=== PATIENT | male | born 1950 | race Two or more races ===

== ENCOUNTER → 2024-03-21 | Outpatient (CLI) | payer MEDICARE, BC, SELFPAY ==
[2024-03-20 16:01] VITALS: BMI 24.0
[2024-03-21 08:59] LABS: Partial Thromboplastin Time 26.1 Seconds (22.0-36.0); Prothrombin Time 11.3 Seconds (9.0-12.2)
== END | disposition home or self-care (01) ==
LOC: SLAB 03-23 07:40
PROVIDERS: Radiology Diagnostic Radiology; PCP Internal Medicine; Referring Provider Internal Medicine; Visit Provider Internal Medicine
DX: N18.6 End stage renal disease (principal); N17.0 Acute kidney failure with tubular necrosis
CPT/HCPCS: 36415; 85025; 85610; 85730

== ENCOUNTER 2024-04-02 15:19 | Emergency (ER) | payer MEDICARE, BC, SELFPAY ==
--- NOTE | 2024-04-02 15:33 | PD.EDRME ---
Rapid Medical Screening Exam RME Arrival date/time: 04/02/24 15:19 74-year-old male presents emerged part today patient had outpatient ultrasound today which showed the patient had a DVT in the right upper extremity patient was sent here for further evaluation Chief Complaint: Extremity Problem,Nontraumatic
[2024-04-02 15:38] VITALS: BP 191/81; PULSE 78; RESP 18; TEMP 36.9; O2SAT 97; BMI 22.3
[2024-04-02 15:55] LABS: Basophils % (Auto) 0 % (0-2.5); Eosinophils # (Auto) 0.1 Thou/mm3 (0.0-0.5); Eosinophils % (Auto) 1 % (0-10); Hematocrit 30.4 % (41.0-53.0); Hemoglobin 9.9 g/dL (13.5-16.0); Immature Granulocytes % (Auto) 1 % (0-0); Immature Granulocytes Auto 0.06 Thou/mm3 (0.00-0.00); Lymphocytes # (Auto) 1.7 Thou/mm3 (1.0-4.8); Lymphocytes % (Auto) 20 % (10-50); Mean Corpuscular HGB Conc 32.6 g/dl (31.0-37.0); Mean Corpuscular Volume 92 fL (80-100); Monocytes # (Auto) 0.6 Thou/mm3 (0.0-0.8); Monocytes % (Auto) 7 % (0-12); Neutrophils # (Auto) 6.1 Thou/mm3 (1.8-7.7); Neutrophils % (Auto) 71 % (37-80); Nucleated Red Blood Cell % 0 /100 WBC (0); Platelet Count 314 Thou/mm3 (140-440); RDW Standard Deviation 48.7 fL (35.1-43.9); White Blood Count 8.5 Thou/mm3 (3.8-10.6)
[2024-04-02 16:28] LABS: Partial Thromboplastin Time 28.5 Seconds (22.0-36.0); Prothrombin Time 11.4 Seconds (9.0-12.2)
[2024-04-02 16:30] LABS: Albumin, Serum 4.5 gm/dL (3.4-4.8); Albumin/Globulin Ratio 1.3 (1.2-2.2); Alkaline Phosphatase 100 U/L (46-116); Anion Gap 11 (7-16); Aspartate Amino Transferase 19 U/L (0-34); BUN/Creatinine Ratio 8 Ratio (12-20); Bilirubin,Total < 0.2 mg/dL (0.3-1.2); Blood Urea Nitrogen 33 mg/dL (9-23); Calcium 9.5 mg/dL (8.3-10.6); Calcium (Corrected) 9.5 mg/dL (8.5-10.1); Carbon Dioxide 28.2 mMol/L (20.0-31.0); Chloride 98 mMol/L (98-107); Creatinine (Component) 4.2 mg/dL (0.6-1.3); Estimated Creatinine Clearance 12.5 mL/min (>60); Globulin 3.6 gm/dL (2.3-3.5); Glucose 181 mg/dL (74-106); Osmolality,Calculated 286 (275-295); Potassium 3.8 mMol/L (3.4-5.1); Sodium 137 mMol/L (136-145); Total Protein 8.1 gm/dL (5.7-8.2); eGFR 14 See Note
[2024-04-02 16:31] LABS: Alanine Aminotransferase < 7 U/L (10-49)
[2024-04-02 21:36] VITALS: BP 153/68; PULSE 81; RESP 18; TEMP 36.8; O2SAT 97
--- NOTE | 2024-04-02 21:48 | PD.EDADULT ---
ED General RME/HPI General Chief complaint: Extremity Problem,Nontraumatic Stated complaint: RIGHT ARM SWELLING AFTER VASCATH PUT IN Time Seen by Provider: 04/02/24 21:41 Arrival date/time: 04/02/24 15:19 Mental swelling in the right arm HPI onset approximately 4 to 5 days ago patient was seen by Dr. Sparks referred to the hospital. The patient had newly placed dialysis shunt in the right anterior chest on March 22, after which the swelling in the arm appeared. There is a concern for a clot in the arm. Patient denies fever chills chest pain shortness of breath difficulty breathing. The patient's dialysis was moved from Tuesday to Tuesday of this week for purposes around [place]. Patient is awake alert and with no specific complaints. RME / HPI RME / HPI narrative: 04/02/24 15:19 74-year-old male presents emerged part today patient had outpatient ultrasound today which showed the patient had a DVT in the right upper extremity patient was sent here for further evaluation Related Data Home Medications ?Medication ?Instructions ?Recorded ?Confirmed memantine 5 mg tablet 5 mg PO BID 01/28/22 09/07/23 B-complex with vitamin C 1 tab PO QDAY 09/07/23 09/07/23 clonazepam 1 mg tablet 1 mg PO HS 09/07/23 09/07/23 clonidine HCl 0.1 mg tablet 0.1 mg PO PRN PRN blood pressure 09/07/23 09/07/23 divalproex 250 mg tablet,delayed 250 mg PO BID 09/07/23 09/07/23 release doxazosin 1 mg tablet 1 mg PO BID 09/07/23 09/07/23 mirtazapine 30 mg tablet 30 mg PO HS 09/07/23 09/07/23 nifedipine 30 mg tablet,extended 60 mg PO BID 09/07/23 09/07/23 release Previous Rx's ?Medication ?Instructions ?Recorded atorvastatin 10 mg tablet (Lipitor) 10 mg PO QPM #30 tabs 09/12/23 apixaban 2.5 mg tablet (Eliquis) 2.5 mg PO BID #30 tabs 04/02/24 Allergies Allergy/AdvReac Type Severity Reaction Status Date / Time No Known Allergies Allergy Verified 04/02/24 15:21 Review of Systems Review of Systems Narrative Review of Systems: GEN: No fever, no chills, no weight loss EYES: No discharge, no visual changes, no pain HEENT: No ear pain, no congestion, no sore throat PULM: No shortness of breath, no cough, no congestion CV: No chest pain, no dyspnea on exertion, no palpitations GI: No nausea, no vomiting, no diarrhea, no pain, no constipation : No frequency, no urgency, no dysuria MUSC/SKEL: No joint pain, no back pain SKIN: No rash PSYCH: No hallucinations, no depression HEME/LYMPH: No easy bleeding or bruising tendencies NEURO: No weakness, no headache Past Medical History Past Medical History NEUROLOGIC: Positive Neurological Disorders, Cerebrovascular Accident, Transient Ischemic Attacks (TIA), Dementia, Peripheral Neuropathy, Subdural Hematoma, Head Trauma and Traumatic Brain Injury; Negative Alzheimer's Disease, Parkinson's Disease, Brain Tumor, Meningitis, Seizures, Epilepsy, Multiple Sclerosis, Cerebral Palsy, Amyotrophic Lateral Sclerosis (ALS/Angela Gehrig's), Guillain-[place] Syndrome, Spina Bifida, Paralysis, Chamorro's Palsy, Migraine or Spinal Cord Injury CARDIAC: Positive Cardiac Disorders, Cardiac Arrhythmia, Atrial Fibrillation, Hypercholesterolemia, Edema and Hypertension; Negative Myocardial Infarction, Angina, Heart Murmur, Coronary Artery Disease, Atherosclerotic Heart Disease, Peripheral Vascular Disease, Aneurysm, Congestive Heart Failure, Congenital Heart Disease, Valvular Heart Disease, Rheumatic Fever, Cardiomyopathy, Pericarditis, Cellulitis, Deep Vein Thrombosis, Hypotension or Varicose Veins RESPIRATORY: Positive Pneumonia; Negative Chronic Obstructive Pulmonary Disease (COPD), Asthma, Bronchitis, Emphysema, Pulmonary Fibrosis, Cystic Fibrosis, Tuberculosis, Pulmonary Embolism, Pulmonary Edema or Sleep Apnea GASTROINTESTINAL: Negative Gastrointestinal Disorders, Hepatitis, Cirrhosis, Pancreatitis, Celiac Disease, Gall Bladder Disease, Gastrointestinal Bleed, Esophageal Varices, Liu's Esophagus, Colitis, Ulcerative Colitis, Diverticulitis, Diverticulosis, Ulcer, Colorectal Cancer, Irritable Bowel, Crohn's Disease, Obstructive Bowel, Hiatal Hernia, Hemorrhoids, Gastroesophageal Reflux Disease or Obesity GENITOURINARY: Positive Genitourinary Disorders, Renal Disease and Dialysis; Negative Kidney Stones, Polycystic Kidney Disease, Neurogenic Bladder, Inguinal Hernia, Prostate Cancer or Benign Prostatic Hyperplasia REPRODUCTIVE: Negative Breast Cancer, Genital Herpes, Gonorrhea, Syphilis or Testicular Cancer MUSCULOSKELETAL: Positive Osteomyelitis; Negative Musculoskeletal Disorders, Muscular Dystrophy, Myasthenia Gravis, Marfan's Syndrome, Bone Cancer, Arthritis, Rheumatoid Arthritis, Osteoporosis, Degenerative Disk Disease, Gout, Scoliosis, Carpal Tunnel Syndrome, Fibromyalgia, Fractures, Degenerative Joint Disease or Poliovirus ENT: Positive Cataracts and Head Trauma; Negative Glaucoma, Blind, Retinal Detachment, Macular Degeneration, Ear Infection, Deafness or Eye Prosthesis ENDOCRINE: Positive Endocrine Disorders and Diabetes Mellitus Type 2; Negative Diabetes Mellitus Type 1, Hypoglycemia, Trenton's Syndrome, Hazen's Disease, Hyperthyroidism, Hypothyroidism, Parathyroid Disease, Pituitary Disease, Systemic Lupus Erythematosus, Syndrome of Inappropriate Antidiuretic Hormone (SIADH), Adrenal Disease or Graves' Disease HEMATOLOGIC: Positive Blood Disorders and Anemia; Negative Leukemia, Hemophilia, Thalassemia, Sickle Cell Disease or Clotting Problems PSYCHO/SOCIAL: Positive Depression and Anxiety; Negative Psychiatric Problems, Schizophrenia, Recreational Drug Use, Bipolar Disorder, Behavior Problems, Self-Mutilation, Attention Deficit Disorder, Attention Deficit Hyperactivity Disorder, Post Traumatic Stress Disorder or Eating Disorder OTHER HISTORY: Positive Hospitalization, Falls and Blood Transfusions; Negative Autoimmune Disease, Down Syndrome, Autism, Developmental Delay, Shingles, Blood Transfusion Reaction, Anesthesia Reactions, Organ Transplant, Chemotherapy, Radiation Therapy, Hyperbaric Therapy, MRSA, VRSA, Vancomycin-Resistant Enterococci, Human Immunodeficiency Virus (HIV), Chicken Pox, Measles, Mumps, Rubella ([place] Measles), Pertussis, Clostridium Difficile, Cancer, Breast Cancer, Cervical Cancer, Colorectal Cancer, Lung Cancer, Ovarian Cancer, Prostate Cancer or Testicular Cancer Family History FAMILY HISTORY: Positive Family Cardiac Disorders; Negative Family Psychiatric Problems, Family Respiratory Disorders, Family Gastrointestinal Problems, Family Cancer, Family Surgery or Family Anesthesia Reaction Surgical History SURGICAL: Positive Eye Surgery, Oral Surgery, Tonsillectomy, Adenoidectomy, Throat Surgery, Tracheostomy, Gastrostomy and Amputation; Negative Cardiac Surgery, Open Heart Surgery, Coronary Artery Bypass Graft, Valve Replacement, Vascular Surgery, Coronary Stent, Cardiac Catheterization, Pacemaker, Angiogram, Auto Implanted Cardiovert Defib, Carotid Endarterectomy, Endocrine Surgery, Thyroidectomy, Ear Surgery, Tympanostomy Tube, Nose Surgery, Cochlear Implant, Corneal Transplant, Abdominal Surgery, Gastric Bypass Surgery, Bowel Surgery, Nephrectomy, Transurethral Resection, Joint Replacement, Open Reduction Internal Fixation, Arthroscopy, Neurologic Surgery, Brain Shunt, Vasectomy or Organ Transplant Social History SMOKING STATUS: Never smoker SECOND HAND EXPOSURE: No SUBSTANCE USE: does not use ED Exam Narrative Physical exam: [General: Appears not in any acute distress acute distress Head normocephalic HEENT: Eyes pupils are PERRLA although subsystems of HEENT are within acceptable limits Neck is supple nontender Chest equal chest rise nontender to palpation, right anterior chest dialysis shunt cath clean dry and intact with dry dressing. No surrounding erythema or edema. Respiratory: Clear to auscultation no wheezes crackles or rubs CV: Rate rhythm is regular no murmurs rubs or clicks Abdomen is distended secondary to body habitus soft nontender no masses positive bowel sounds all 4 quadrants Back: No CVA tenderness no spinous process tenderness from cervical spine thoracic and lumbar spine Skin: Mild edema to the right upper arm and in the axillary. No surrounding erythema or edema. Intact no petechiae rash induration ulceration or crepitus Extremities: Moving all extremity against resistance cap refill less than 2 seconds neurosensory intact Neuro: Awake alert oriented x3 Glascow coma 15 no focal deficits] Course Quality Measures none Orders Category Date Time Status CBC Stat Lab 04/02/24 15:45 Completed Comprehensive Metabolic Panel Stat Lab 04/02/24 15:45 Completed Partial Thromboplastin Time Stat Lab 04/02/24 15:45 Completed Prothrombin Time with INR Stat Lab 04/02/24 15:45 Completed Apixaban [Eliquis] Med 04/02/24 22:20 Discontinued 2.5 mg PO X1 ONE Vital Signs Vital signs: Vital Signs Temperature 98.5 F 04/02/24 15:38 Pulse Rate 78 04/02/24 15:38 Respiratory Rate 18 04/02/24 15:38 Blood Pressure 191/81 H 04/02/24 15:38 Pulse Oximetry (%) 97 04/02/24 15:38 Oxygen Delivery Method Room Air 04/02/24 15:38 [facility] Patient data External records reviewed:: [facility] previous records Clinical information provided by:: patient and family Social determinants that could affect healthcare access:: mental health Patient has the following chronic illnesses:: ESRD dialysis Tuesday and Tuesday normally however this week is Tuesday and secondary to [place] accommodations. Recent right anterior chest dialysis shunt placement on March 22. 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 Patient's son who is power of senior lead software engineer and medical power of senior lead software engineer states he wants to start on the Eliquis after risks and benefit were discussed both of and potential head bleed secondary to the old hemorrhage a year ago and bleeding placed on thinners and from avoiding thinners secondary to the clot in the upper arm which may cause stroke and/or pulmonary emboli. After lengthy discussion regarding the risks of either the son elected to go to start the Eliquis. Patient's case and the son's decision discussed with Dr. Sparks who agrees to a low-dose giving the first dose tonight, and a prescription for follow-up. Son was informed that the patient's decrease in altered mental status in the next couple of days may be as a result of a head bleed and if there is any questions return the emergency room for reevaluation. How is presenting disease/condition affected by chronic disease/condition?: exacerbated by Evaluation data The following diagnostics were reviewed and interpreted by me:: lab results and radiology exam(s) Lab and/or radiology exams considered but not ordered:: CBC shows no leukocytosis stable anemia no thrombocytopenia Coags within acceptable limits CMP shows sodium 137 potassium 3.8 chloride of 98 CO2 of 28.2 BUN of 33 creatinine 4.2 glucose of 181 Interpretation Summary: DVT in the right upper extremity son who has power of medical privileges over the patient once the patient started on Eliquis we will give him his first dose here. Medications Medications considered but not ordered:: None Medication administrations:: Medication Administration History Discontinued Medications Apixaban (Apixaban 2.5 Mg Tablet) 2.5 mg PO X1 ONE Stop: 04/02/24 22:21 None Consultations Consultation(s) initiated? (list below): No Diagnosis Differential Diagnosis ED Complaint MDM: Upper extremity DVT, clotted shunt, anemia Most likely diagnosis given after review of the tests above:: Upper extremity DVT Admission Indicated Admission indicated?: not indicated Explain why admission is indicated or not indicated:: Stable for outpatient follow-up Admission Request Was there a request for admission?: No Disposition Plan Disposition Plan: Discharge Discharge Attestation Discharge Attestation: The patient and all family members were given an opportunity to ask questions and understood the discharge instructions. Discharge instructions specifically effects, indications for sooner follow up or return to the emergency department, and the expected course of current diagnosis. Patient condition: Stable Medical Decision Making Differential Diagnosis Differential Diagnosis: Upper extremity DVT, clotted shunt, anemia Lab Data 04/02/24 15:45 04/02/24 15:45 Labs: Lab Results 04/02/24 Range/Units 15:45 WBC 8.5 (3.8-10.6) Thou/mm3 RBC 3.30 L (4.50-5.90) Miln/mm3 Hgb 9.9 L (13.5-16.0) g/dL Hct 30.4 L (41.0-53.0) % MCV 92 (80-100) fL MCH 30.0 (25.0-35.0) pg MCHC 32.6 (31.0-37.0) g/dl RDW Std Deviation 48.7 H (35.1-43.9) fL Plt Count 314 (140-440) Thou/mm3 Neut % (Auto) 71 (37-80) % Lymph % (Auto) 20 (10-50) % [place] % (Auto) 7 (0-12) % Eos % (Auto) 1 (0-10) % Baso % (Auto) 0 (0-2.5) % Neut # (Auto) 6.1 (1.8-7.7) Thou/mm3 Lymph # (Auto) 1.7 (1.0-4.8) Thou/mm3 [place] # (Auto) 0.6 (0.0-0.8) Thou/mm3 Eos # (Auto) 0.1 (0.0-0.5) Thou/mm3 Baso # (Auto) 0.0 (0.0-0.2) Thou/mm3 Immature Gran # (Auto) 0.06 H (0.00-0.00) Thou/mm3 Absolute Nucleated RBC 0.00 (0.00-0.00) Thou/mm3 Immature Gran % 1 H (0-0) % Nucleated RBC % 0 (0) /100 WBC PT 11.4 (9.0-12.2) Seconds INR 1.0 (0.9-1.3) APTT 28.5 (22.0-36.0) Seconds Sodium 137 (136-145) mMol/L Potassium 3.8 (3.4-5.1) mMol/L Chloride 98 (98-107) mMol/L Carbon Dioxide 28.2 (20.0-31.0) mMol/L Anion Gap 11 (7-16) BUN 33 H (9-23) mg/dL Creatinine 4.2 H* (0.6-1.3) mg/dL Estim Creat Clear Calc 12.5 L (>60) mL/min eGFR 14 L* (60 - ) See Note BUN/Creatinine Ratio 8 L (12-20) Ratio Glucose 181 H (74-106) mg/dL Calculated Osmolality 286 (275-295) Calcium 9.5 (8.3-10.6) mg/dL Corrected Calcium 9.5 (8.5-10.1) mg/dL Total Bilirubin < 0.2 L (0.3-1.2) mg/dL AST 19 (0-34) U/L ALT < 7 L (10-49) U/L Alkaline Phosphatase 100 (46-116) U/L Total Protein 8.1 (5.7-8.2) gm/dL Albumin 4.5 (3.4-4.8) gm/dL Globulin 3.6 H (2.3-3.5) gm/dL Albumin/Globulin Ratio 1.3 (1.2-2.2) Discharge Plan Plan Patient Disposition: HOME (Self Care) Patient condition on transfer: Stable Prescriptions/Referrals Prescriptions/Med Rec: New Eliquis 2.5 mg tablet 2.5 mg PO BID Qty: 30 1RF No Action clonidine HCl 0.1 mg tablet 0.1 mg PO PRN PRN (Reason: blood pressure) Patient Comments: take 1 tablet by mouth four times a day Rx Instructions: systolic above 175 divalproex 250 mg tablet,delayed release (DR/EC) 250 mg PO BID Patient Comments: TAKE ONE TABLET (250MG) BY MOUTH TWICE DAILY FOR AGITATION DO NOT CHEW OR CRUSH SWALLOW WHOLE doxazosin 1 mg tablet 1 mg PO BID Patient Comments: TAKE ONE TABLET (1MG) BY MOUTH TWICE DAILY FOR HIGH BLOOD PRESSURE clonazepam 1 mg tablet 1 mg PO HS Patient Comments: TAKE ONE TABLET BY MOUTH THREE TIMES DAILY NEEDED FOR ANXIETY nifedipine 30 mg tablet extended release 60 mg PO BID Patient Comments: take 2 tablets by mouth twice a day mirtazapine 30 mg tablet 30 mg PO HS B-complex with vitamin C Tablet 1 tab PO QDAY atorvastatin [Lipitor] 10 mg Tablet 10 mg PO QPM Qty: 30 0RF memantine 5 mg Tablet 5 mg PO BID Referrals: Neda Sparks MD [Primary Care Provider] - In 1 week Problem List Clinical Impression: Acute deep vein thrombosis (DVT) of right upper extremity Patient/Caregiver Discharge Instructions Education Materials: DVT Complications, DVT Dc Additional Instructions: As you are aware given the blood thinners with a history of a head bleed 1 year ago has significant risks for repeat bleed in the head. If the patient has a rapid deteriorating neurologic function becoming nonresponsive please return to the emergency room immediately for further evaluation and stop giving the Eliquis. Follow-up with Dr. Sparks closely. Print Language: Dustin Stand Alone Forms: [place] Award Info., Patient Portal Info Letter, Work/School Release PA/OIL FIELD WORKER Supervising Physician PA/OIL FIELD WORKER Supervising Physician: Cy Winter ENP
[2024-04-02] MEDS: APIXABAN 2.5 MG TABLET PO (22:33)
== END 2024-04-02 22:35 | disposition home or self-care (01) ==
PROVIDERS: Nurse Practitioner Primary Care; Emergency Provider Emergency Medicine; PCP Internal Medicine
DX: I82.621 Acute embolism and thrombosis of deep veins of right upper extremity (principal)
CPT/HCPCS: 36415; 80053; 85025; 85610; 85730; 99283; A9270

== ENCOUNTER → 2024-04-02 | Outpatient (CLI) | payer MEDICARE, BC, SELFPAY ==
--- NOTE | 2024-04-02 14:33 | XR_ITS ---
Examination: Duplex scan of the upper extremity, unilateral right complete Date and time of exam: April 02, 2024 1448 hrs. Indications: Right arm swelling post catheter replacement March 22, 2024 Technique: Duplex scan of the extremity veins using B-mode/grayscale imaging and Doppler spectral analysis and color flow Attention is directed to internal echogenicity, compression and augmentation involving these veins, color flow assessment, spectral analysis Findings: Positive for occlusive thrombus jugular vein subclavian and axillary vein Cephalic brachial basilic radial and ulnar veins are open Impression: Positive for occlusive thrombus remains subclavian axillary veins
== END | disposition home or self-care (01) ==
PROVIDERS: PCP Internal Medicine; Referring Provider Internal Medicine; Visit Provider Internal Medicine
DX: I82.601 Acute embolism and thrombosis of unspecified veins of right upper extremity (principal)
CPT/HCPCS: 93971

== ENCOUNTER 2024-04-24 20:32 | Emergency (ER) | payer MEDICARE, BC, SELFPAY ==
[2024-04-24 20:41] VITALS: BP 169/72; PULSE 77; RESP 17; TEMP 36.9; O2SAT 96
[2024-04-24 21:28] VITALS: PULSE 80; RESP 16; O2SAT 97; BMI 23.5
[2024-04-24 22:24] VITALS: BP 162/114; PULSE 108; RESP 26; O2SAT 96
[2024-04-24 23:00] VITALS: BP 150/71; PULSE 76; RESP 22; O2SAT 98
--- NOTE | 2024-04-24 23:19 | EDNOTE_ITS ---
Altered Mental Status RME/HPI General Chief Complaint: Altered Mental Status Stated Complaint: CONFUSION Time Seen by Provider: 04/24/24 23:21 Arrival date/time: 04/24/24 20:32 RME / HPI RME / HPI narrative: Dr. High's Main ED Evaluation: 74yo male with pmhx dementia, CVA, ESRD on HD (M/W/F), DM, HTN, HLD BIBA from home presents to the ED for a chief complaint of AMS. Patient's son states the patient has been more confused and altered for the last 2 days, reporting tonight he was pulling at his dialysis port. Son states they were concerned due to the patient being due for dialysis tomorrow, so they had him brought in for evaluation. Full ROS is unobtainable due to the patient's AMS. Of note, son states the patient is no longer on Eliquis, and was stopped by his hospice doctor and son states that this is the best choice because he is high risk for falling and they would do not want that. He realizes that patient can also have a pulmonary embolism since he is not on Eliquis. Related Data Home Medications ?Medication ?Instructions ?Recorded ?Confirmed memantine 5 mg tablet 5 mg PO BID 01/28/22 09/07/23 B-complex with vitamin C 1 tab PO QDAY 09/07/23 09/07/23 clonazepam 1 mg tablet 1 mg PO HS 09/07/23 09/07/23 clonidine HCl 0.1 mg tablet 0.1 mg PO PRN PRN blood pressure 09/07/23 09/07/23 divalproex 250 mg tablet,delayed 250 mg PO BID 09/07/23 09/07/23 release doxazosin 1 mg tablet 1 mg PO BID 09/07/23 09/07/23 mirtazapine 30 mg tablet 30 mg PO HS 09/07/23 09/07/23 nifedipine 30 mg tablet,extended 60 mg PO BID 09/07/23 09/07/23 release Previous Rx's ?Medication ?Instructions ?Recorded atorvastatin 10 mg tablet (Lipitor) 10 mg PO QPM #30 tabs 09/12/23 apixaban 2.5 mg tablet (Eliquis) 2.5 mg PO BID #30 tabs 04/02/24 Allergies Allergy/AdvReac Type Severity Reaction Status Date / Time No Known Allergies Allergy Verified 04/02/24 15:21 Review of Systems Review of Systems ROS Unobtainable: unobtainable due to mental status Past Medical History Past Medical History NEUROLOGIC: Positive Neurological Disorders, Cerebrovascular Accident, Transient Ischemic Attacks (TIA), Dementia, Peripheral Neuropathy, Subdural Hematoma, Head Trauma and Traumatic Brain Injury; Negative Alzheimer's Disease, Parkinson's Disease, Brain Tumor, Meningitis, Seizures, Epilepsy, Multiple Sclerosis, Cerebral Palsy, Amyotrophic Lateral Sclerosis (ALS/Angela Gehrig's), Guillain-Milford Syndrome, Spina Bifida, Paralysis, Chamorro's Palsy, Migraine or Spinal Cord Injury CARDIAC: Positive Cardiac Disorders, Cardiac Arrhythmia, Atrial Fibrillation, Hypercholesterolemia, Edema and Hypertension; Negative Myocardial Infarction, Angina, Heart Murmur, Coronary Artery Disease, Atherosclerotic Heart Disease, Peripheral Vascular Disease, Aneurysm, Congestive Heart Failure, Congenital Heart Disease, Valvular Heart Disease, Rheumatic Fever, Cardiomyopathy, Pericarditis, Cellulitis, Deep Vein Thrombosis, Hypotension or Varicose Veins RESPIRATORY: Positive Pneumonia; Negative Chronic Obstructive Pulmonary Disease (COPD), Asthma, Bronchitis, Emphysema, Pulmonary Fibrosis, Cystic Fibrosis, Tuberculosis, Pulmonary Embolism, Pulmonary Edema or Sleep Apnea GASTROINTESTINAL: Negative Gastrointestinal Disorders, Hepatitis, Cirrhosis, Pancreatitis, Celiac Disease, Gall Bladder Disease, Gastrointestinal Bleed, Esophageal Varices, Liu's Esophagus, Colitis, Ulcerative Colitis, Diverticulitis, Diverticulosis, Ulcer, Colorectal Cancer, Irritable Bowel, Crohn's Disease, Obstructive Bowel, Hiatal Hernia, Hemorrhoids, Gastroesophageal Reflux Disease or Obesity GENITOURINARY: Positive Genitourinary Disorders, Renal Disease and Dialysis; Negative Kidney Stones, Polycystic Kidney Disease, Neurogenic Bladder, Inguinal Hernia, Prostate Cancer or Benign Prostatic Hyperplasia REPRODUCTIVE: Negative Breast Cancer, Genital Herpes, Gonorrhea, Syphilis or Testicular Cancer MUSCULOSKELETAL: Positive Osteomyelitis; Negative Musculoskeletal Disorders, Muscular Dystrophy, Myasthenia Gravis, Marfan's Syndrome, Bone Cancer, Arthritis, Rheumatoid Arthritis, Osteoporosis, Degenerative Disk Disease, Gout, Scoliosis, Carpal Tunnel Syndrome, Fibro myalgia, Fractures, Degenerative Joint Disease or Poliovirus ENT: Positive Cataracts and Head Trauma; Negative Glaucoma, Blind, Retinal Detachment, Macular Degeneration, Ear Infection, Deafness or Eye Prosthesis ENDOCRINE: Positive Endocrine Disorders and Diabetes Mellitus Type 2; Negative Diabetes Mellitus Type 1, Hypoglycemia, Jacques's Syndrome, Sumit's Disease, Hyperthyroidism, Hypothyroidism, Parathyroid Disease, Pituitary Disease, Systemic Lupus Erythematosus, Syndrome of Inappropriate Antidiuretic Hormone (SIADH), Adrenal Disease or Graves' Disease HEMATOLOGIC: Positive Blood Disorders and Anemia; Negative Leukemia, Hemophilia, Thalassemia, Sickle Cell Disease or Clotting Problems PSYCHO/SOCIAL: Positive Depression and Anxiety; Negative Psychiatric Problems, Schizophrenia, Recreational Drug Use, Bipolar Disorder, Behavior Problems, Self-Mutilation, Attention Deficit Disorder, Attention Deficit Hyperactivity Disorder, Post Traumatic Stress Disorder or Eating Disorder OTHER HISTORY: Positive Hospitalization, Falls and Blood Transfusions; Negative Autoimmune Disease, Down Syndrome, Autism, Developmental Delay, Shingles, Blood Transfusion Reaction, Anesthesia Reactions, Organ Transplant, Chemotherapy, Radiation Therapy, Hyperbaric Therapy, MRSA, VRSA, Vancomycin- Resistant Enterococci, Human Immunodeficiency Virus (HIV), Chicken Pox, Measles, Mumps, Rubella (Uzbek Measles), Pertussis, Clostridium Difficile, Cancer, Breast Cancer, Cervical Cancer, Colorectal Cancer, Lung Cancer, Ovarian Cancer, Prostate Cancer or Testicular Cancer Family History FAMILY HISTORY: Positive Family Cardiac Disorders; Negative Family Psychiatric Problems, Family Respiratory Disorders, Family Gastrointestinal Problems, Family Cancer, Family Surgery or Family Anesthesia Reaction Surgical History SURGICAL: Positive Eye Surgery, Oral Surgery, Tonsillectomy, Adenoidectomy, Throat Surgery, Tracheostomy, Gastrostomy and Amputation; Negative Cardiac Surgery, Open Heart Surgery, Coronary Artery Bypass Graft, Valve Replacement, Vascular Surgery, Coronary Stent, Cardiac Catheterization, Pacemaker, Angiogram, Auto Implanted Cardiovert Defib, Carotid Endarterectomy, Endocrine Surgery, Thyroidectomy, Ear Surgery, Tympanostomy Tube, Nose Surgery, Cochlear Implant, Corneal Transplant, Abdominal Surgery, Gastric Bypass Surgery, Bowel Surgery, Nephrectomy, Transurethral Resection, Joint Replacement, Open Reduction Internal Fixation, Arthroscopy, Neurologic Surgery, Brain Shunt, Vasectomy or Organ Transplant Social History SMOKING STATUS: Never smoker SECOND HAND EXPOSURE: No SUBSTANCE USE: does not use ED Exam General General appearance: Present other (demented at baseline; recognizes his son, opens and closes his eyes spontaneously, refuses to talk) Head Head exam: Present atraumatic and normocephalic Eye Eye exam: Present normal appearance Neck Neck exam: Present normal inspection and full ROM Chest Chest inspection: Present normal inspection, symmetric chest wall rise and other (port-a-cath to the right chest with stitches in place, no blood on gauze) Respiratory Respiratory exam: Absent accessory muscle use Cardiovascular Cardiovascular exam: Present regular rate and normal rhythm Abdominal Exam Abdominal exam: Present soft and other (scaphoid) Extremities Exam Extremities exam: Present normal inspection and full ROM; Absent pedal edema Neurological Exam Neurological exam: Present other (demented at baseline) Psychiatric Psychiatric exam: Present agitated Skin Skin exam: Present warm, dry and intact Course Quality Measures none Orders Category Date Time Status CT head/brain wo con Stat Exams 04/24/24 23:22 Completed CBC Stat Lab 04/24/24 23:35 Completed CMP [Comprehensive Metabolic Panel] Stat Lab 04/24/24 23:35 Completed Vital Signs Vital signs: Vital Signs Temperature 98.5 F 04/24/24 20:41 Pulse Rate 77 04/24/24 20:41 Respiratory Rate 17 04/24/24 20:41 Blood Pressure 169/72 H 04/24/24 20:41 Pulse Oximetry (%) 96 04/24/24 20:41 Oxygen Delivery Method Room Air 04/24/24 20:41 Altered Mental Status MDM Narrative MDM Narrative:: 74-year-old male coming in with acute on chronic dementia. CT does not show bleed. Discussed with the son and at this time he feels very comfortable taking the patient home. He feels the patient is at his baseline. Patient data External records reviewed:: [facility] previous records (Per chart review, patient was seen here on 04/02/24 for acute DVT of the RUE.) Clinical information provided by:: family Social determinants that could affect healthcare access:: none Patient has the following chronic illnesses:: dementia, CVA, ESRD on HD (M/W/F), DM, HTN, HLD How is presenting disease/condition affected by chronic disease/condition?: exacerbated by Evaluation data The following diagnostics were reviewed and interpreted by me:: lab results and radiology exam(s) Lab and/or radiology exams considered but not ordered:: none Interpretation Summary: WBC count is normal, HnH is low at 8.5/25.3 (baseline for the patient), Creatinine is elevated at 4.8, according to my interpretation. --------- [facility] Report Signed Patient: KELLY HOU. Record#: [id number] Birthdate: 1950 Age/Sex: 74 / M Location: [facility] Attending Dr: Ordering Physician: Anabelle High MD Date of Service: 04/24/24 Procedure(s): CT head/brain wo con Accession Number(s): [id number] cc: Nishant Sellers MD; Anabelle High MD~ Examination: CT brain head without contrast. 2-D sagittal coronal reconstructions Date and time of exam:April 24, 1999 2539 hours Comparison September 07, 2023 Indications: Dementia history with increasing altered mental status the last 2 days CTDI: vol (mGy):50 DLP: (mGycm):1050 Technique: Multiple CT axial sections of the brain have been obtained, 5 mm slice thickness. Contrast has not been administered. 2-D sagittal, coronal reconstructions have been obtained Low dose protocols were performed. One or more of the following dose reduction techniques were used; automated exposure control, adjustment of the mA and/or KV according to patient size, use of iterative reconstruction technique. Findings: No significant ventricular enlargement. Frontal atrophy with extensive chronic microvascular white matter change Intra-axial or extra-axial hemorrhage density is not seen. No mass effect or midline shift Basal cisterns are not remarkable. Fourth ventricle is midline. Cranial vault intact. Impression: Negative for acute hemorrhage, mass effect or midline shift As clinically warranted, brain MRI follow-up would best assess for acute ischemic change as well as chronic multi-infarct dementia pattern Dictated By: Nishant Sellers MD Signed By: <Electronically signed by Nishant Sellers MD in OV> 04/24/24 8029 Medications / Prescriptions Medications or Prescriptions considered but not ordered:: none Medication administrations:: see above Consultations Consultation(s) initiated? (list below): No Diagnosis Differential diagnosis altered mental status: other (dehydration, UTI, electrolyte abnormality) Most likely diagnosis given after review of the tests above:: see below Admission Indicated Admission indicated?: not indicated Admission Request Was there a request for admission?: No Disposition Plan Disposition Plan: Discharge Discharge Attestation Discharge Attestation: The patient and all family members were given an opportunity to ask questions and understood the discharge instructions. Discharge instructions specifically effects, indications for sooner follow up or return to the emergency department, and the expected course of current diagnosis. Patient condition: Stable Discharge Plan Plan Patient Disposition: HOME (Self Care) Patient condition on transfer: Stable Prescriptions/Referrals Prescriptions/Med Rec: No Action clonidine HCl 0.1 mg tablet 0.1 mg PO PRN PRN (Reason: blood pressure) Patient Comments: take 1 tablet by mouth four times a day Rx Instructions: systolic above 175 divalproex 250 mg tablet,delayed release (DR/EC) 250 mg PO BID Patient Comments: TAKE ONE TABLET (250MG) BY MOUTH TWICE DAILY FOR AGITATION DO NOT CHEW OR CRUSH SWALLOW WHOLE doxazosin 1 mg tablet 1 mg PO BID Patient Comments: TAKE ONE TABLET (1MG) BY MOUTH TWICE DAILY FOR HIGH BLOOD PRESSURE clonazepam 1 mg tablet 1 mg PO HS Patient Comments: TAKE ONE TABLET BY MOUTH THREE TIMES DAILY NEEDED FOR ANXIETY nifedipine 30 mg tablet extended release 60 mg PO BID Patient Comments: take 2 tablets by mouth twice a day mirtazapine 30 mg tablet 30 mg PO HS B-complex with vitamin C Tablet 1 tab PO QDAY atorvastatin [Lipitor] 10 mg Tablet 10 mg PO QPM Qty: 30 0RF Eliquis 2.5 mg tablet 2.5 mg PO BID Qty: 30 1RF memantine 5 mg Tablet 5 mg PO BID Problem List Clinical Impression: Dementia Patient/Caregiver Discharge Instructions Education Materials: Dementia Caregiver Tips Additional Instructions: Please go to dialysis today as directed. Return to emergency department for any worsening symptoms, or any other concerns. Print Language: Dustin Stand Alone Forms: [facility]ne Award Info., Patient Portal Info Letter
--- NOTE | 2024-04-24 23:22 | XR_ITS ---
Examination: CT brain head without contrast. 2-D sagittal coronal reconstructions Date and time of exam:April 24, 1999 2539 hours Comparison September 07, 2023 Indications: Dementia history with increasing altered mental status the last 2 days CTDI: vol (mGy):50 DLP: (mGycm):1050 Technique: Multiple CT axial sections of the brain have been obtained, 5 mm slice thickness. Contrast has not been administered. 2-D sagittal, coronal reconstructions have been obtained Low dose protocols were performed. One or more of the following dose reduction techniques were used; automated exposure control, adjustment of the mA and/or KV according to patient size, use of iterative reconstruction technique. Findings: No significant ventricular enlargement. Frontal atrophy with extensive chronic microvascular white matter change Intra-axial or extra-axial hemorrhage density is not seen. No mass effect or midline shift Basal cisterns are not remarkable. Fourth ventricle is midline. Cranial vault intact. Impression: Negative for acute hemorrhage, mass effect or midline shift As clinically warranted, brain MRI follow-up would best assess for acute ischemic change as well as chronic multi-infarct dementia pattern
[2024-04-24 23:55] LABS: Eosinophils % (Auto) 2 % (0-10); Lymphocytes % (Auto) 20 % (10-50); Mean Corpuscular HGB Conc 33.6 g/dl (31.0-37.0)
[2024-04-25 00:06] LABS: Alanine Aminotransferase < 7 U/L (10-49); Albumin, Serum 3.8 gm/dL (3.4-4.8); Albumin/Globulin Ratio 1.2 (1.2-2.2); Alkaline Phosphatase 90 U/L (46-116); Anion Gap 10 (7-16); Aspartate Amino Transferase 20 U/L (0-34); BUN/Creatinine Ratio 8 Ratio (12-20); Bilirubin,Total < 0.2 mg/dL (0.3-1.2); Blood Urea Nitrogen 38 mg/dL (9-23); Calcium 8.8 mg/dL (8.3-10.6); Carbon Dioxide 28.2 mMol/L (20.0-31.0); Chloride 99 mMol/L (98-107); Creatinine (Component) 4.8 mg/dL (0.6-1.3); Estimated Creatinine Clearance 12.2 mL/min (>60); Globulin 3.2 gm/dL (2.3-3.5); Glucose 111 mg/dL (74-106); Osmolality,Calculated 283 (275-295); Potassium 3.6 mMol/L (3.4-5.1); Sodium 137 mMol/L (136-145); eGFR 12 See Note
[2024-04-25 00:39] VITALS: BP 180/92; PULSE 70; RESP 20; TEMP 37; O2SAT 98
[2024-04-25 01:55] LABS: Hemoglobin 8.5 g/dL (13.5-16.0)
[2024-04-25 02:00] LABS: White Blood Count 8.1 Thou/mm3 (3.8-10.6)
[2024-04-25 02:01] LABS: Hematocrit 25.3 % (41.0-53.0); Mean Corpuscular Hemoglobin 30.4 pg (25.0-35.0); Mean Corpuscular Volume 90 fL (80-100)
[2024-04-25 02:02] LABS: Platelet Count 268 Thou/mm3 (140-440); RDW Standard Deviation 47.7 fL (35.1-43.9)
[2024-04-25 02:03] LABS: Basophils % (Auto) 0 % (0-2.5); Monocytes % (Auto) 8 % (0-12); Neutrophils # (Auto) 5.6 Thou/mm3 (1.8-7.7); Neutrophils % (Auto) 69 % (37-80)
[2024-04-25 02:04] LABS: Eosinophils # (Auto) 0.1 Thou/mm3 (0.0-0.5); Immature Granulocytes % (Auto) 1 % (0-0); Lymphocytes # (Auto) 1.7 Thou/mm3 (1.0-4.8); Monocytes # (Auto) 0.7 Thou/mm3 (0.0-0.8)
[2024-04-25 02:05] LABS: Immature Granulocytes Auto 0.05 Thou/mm3 (0.00-0.00); Nucleated Red Blood Cell % 0 /100 WBC (0)
[2024-04-25 02:20] LABS: Eosinophils (Manual) 2 % (0-4); Lymphocytes (Manual) 26 % (20-44); Monocytes (Manual) 9 % (2-9); Neutrophils (Manual) 63 % (50-70)
[2024-04-25 04:22] VITALS: BP 166/76; PULSE 72; RESP 18; TEMP 36.8; O2SAT 98
== END 2024-04-25 04:26 | disposition home or self-care (01) ==
LOC: SERX 04-25 04:04
PROVIDERS: Emergency Provider Emergency Medicine; PCP Internal Medicine
DX: E11.22 Type 2 diabetes mellitus with diabetic chronic kidney disease (principal); I12.0 Hypertensive chronic kidney disease with stage 5 chronic kidney disease or end stage renal disease; N18.6 End stage renal disease; Z99.2 Dependence on renal dialysis; Z86.73 Personal history of transient ischemic attack (TIA), and cerebral infarction without residual deficits
CPT/HCPCS: 36415; 70450; 80053; 85025; 99284

== ENCOUNTER → 2024-06-13 | Outpatient (CLI) | payer MEDICARE, BC, SELFPAY ==
[2024-06-13 11:42] LABS: OBS Card Expiration Date 2026-09; OBS Card Lot # 23001; OBS Performed By LAB; OBS QC OK? Yes
[2024-06-13 13:28] LABS: OBS Developer Expiration Date 2026-09; OBS Developer Lot # 23003; Occult Blood, Stool Negative (Negative); Occult Blood, Stool #2 Negative (Negative); Occult Blood, Stool #3 Negative (Negative)
== END | disposition home or self-care (01) ==
LOC: SLDO 10:30
PROVIDERS: PCP Internal Medicine; Referring Provider Internal Medicine; Visit Provider Internal Medicine
DX: D64.9 Anemia, unspecified (principal)
CPT/HCPCS: 82270

== ENCOUNTER → 2024-09-17 | Outpatient (CLI) | payer MEDICARE, BC, SELFPAY ==
--- NOTE | 2024-09-17 15:48 | XR_ITS ---
Examination: Duplex scan of the upper extremity, unilateral right Date and time of exam: September 17, 2024 1615 hours INDICATIONS: Right arm swelling beginning March 2024, positive for occlusive DVT jugular vein on ultrasound examination April 02, 2024, Technique: Duplex scan of the extremity veins using B-mode/grayscale imaging and Doppler spectral analysis and color flow Attention is directed to internal echogenicity, compression and augmentation involving these veins, color flow assessment, spectral analysis Findings: Major deep venous structures in the extremity demonstrate normal course and caliber. There is no evidence of deep vein thrombosis. No diagnostic visualization subclavian vein Normal color flow and spectral analysis Impression: No DVT demonstrated, including patent jugular vein
== END | disposition home or self-care (01) ==
PROVIDERS: PCP Internal Medicine; Referring Provider Internal Medicine; Visit Provider Internal Medicine
DX: R22.33 Localized swelling, mass and lump, upper limb, bilateral (principal); I82.401 Acute embolism and thrombosis of unspecified deep veins of right lower extremity
CPT/HCPCS: 93971

== ENCOUNTER 2024-11-30 10:24 | Inpatient (IN) | payer MEDICARE, BC, SELFPAY ==
[2024-11-30] VITALS (13 sets, daily range): BP systolic 112–210; BP diastolic 57–89; PULSE 67–87; RESP 14–90; TEMP 34.8–37.2; O2SAT 91–100; BMI 16.4
--- NOTE | 2024-11-30 10:35 | PD.EDAMS ---
Altered Mental Status RME/HPI General Chief Complaint: Fever Stated Complaint: AMS Time Seen by Provider: 11/30/24 10:34 Arrival date/time: 11/30/24 10:24 Limitations: no limitations RME / HPI RME / HPI narrative: DR. SYLVAIN NELSON ED EVALUATION: 74-year-old male with past medical history of renal failure on dialysis, diabetes mellitus, hypertension on medications, stroke, and severe dementia, currently on hospice with recent change to DNR status, presents to the Emergency Department BIBA from the dialysis center for altered mentation and fever. Per EMS, blood pressure was 134/84, heart rate 84, and oxygen saturation 98% on room air. Temperature noted to be 102?F. No history obtainable from the patient. Son reports he was unable to communicate with the patient and is more altered than normal. Patient primarily speaks Dada. Related Data Home Medications ?Medication ?Instructions ?Recorded ?Confirmed memantine 5 mg tablet 5 mg PO BID 01/28/22 09/07/23 B-complex with vitamin C 1 tab PO QDAY 09/07/23 09/07/23 clonazepam 1 mg tablet 1 mg PO HS 09/07/23 09/07/23 clonidine HCl 0.1 mg tablet 0.1 mg PO PRN PRN blood pressure 09/07/23 09/07/23 divalproex 250 mg tablet,delayed 250 mg PO BID 09/07/23 09/07/23 release doxazosin 1 mg tablet 1 mg PO BID 09/07/23 09/07/23 mirtazapine 30 mg tablet 30 mg PO HS 09/07/23 09/07/23 nifedipine 30 mg tablet,extended 60 mg PO BID 09/07/23 09/07/23 release Previous Rx's ?Medication ?Instructions ?Recorded atorvastatin 10 mg tablet (Lipitor) 10 mg PO QPM #30 tabs 09/12/23 apixaban 2.5 mg tablet (Eliquis) 2.5 mg PO BID #30 tabs 04/02/24 Allergies Allergy/AdvReac Type Severity Reaction Status Date / Time No Known Allergies Allergy Verified 04/02/24 15:21 Review of Systems Review of Systems Systems Reviewed: All systems reviewed, normal except as documented Past Medical History Past Medical History NEUROLOGIC: Positive Neurological Disorders, Cerebrovascular Accident, Transient Ischemic Attacks (TIA), Dementia, Peripheral Neuropathy, Subdural Hematoma, Head Trauma and Traumatic Brain Injury CARDIAC: Positive Cardiac Disorders, Cardiac Arrhythmia, Atrial Fibrillation, Hypercholesterolemia, Edema and Hypertension RESPIRATORY: Positive Pneumonia GENITOURINARY: Positive Genitourinary Disorders, Renal Disease and Dialysis MUSCULOSKELETAL: Positive Osteomyelitis ENT: Positive Cataracts and Head Trauma ENDOCRINE: Positive Endocrine Disorders HEMATOLOGIC: Positive Blood Disorders and Anemia PSYCHO/SOCIAL: Positive Depression and Anxiety OTHER HISTORY: Positive Hospitalization, Falls and Blood Transfusions Family History FAMILY HISTORY: Positive Family Cardiac Disorders Surgical History SURGICAL: Positive Eye Surgery, Oral Surgery, Tonsillectomy, Adenoidectomy, Throat Surgery, Tracheostomy, Gastrostomy and Amputation Social History SMOKING STATUS: Never smoker SECOND HAND EXPOSURE: No SUBSTANCE USE: does not use ALCOHOL: Never ED Exam General Limitations: Present no limitations General appearance: Present alert, in no apparent distress and other (Looks very weak; cachectic. Minimally verbal due to advanced dementia.) Head Head exam: Present atraumatic, normocephalic and normal inspection Eye Eye exam: Present normal appearance, PERRL and EOMI ENT ENT exam: Present normal exam, normal oropharynx and mucous membranes moist Neck Neck exam: Present normal inspection, full ROM and trachea midline Chest Chest inspection: Present normal inspection and symmetric chest wall rise Respiratory Respiratory exam: Present other (Coarse breath sounds bilaterally) Cardiovascular Cardiovascular exam: Present regular rate, normal rhythm and normal heart sounds Abdominal Exam Abdominal exam: Present soft and normal bowel sounds Extremities Exam Extremities exam: Present full ROM and other (Bilateral hand 2+ edema; firm right bicep, seems tender.) Back Exam Back exam: Present normal inspection and full ROM Neurological Exam Neurological exam: Present other (Minimally verbal due to advanced dementia) Psychiatric Psychiatric exam: Present normal affect and normal mood Skin Skin exam: Present warm, dry, intact and normal color Course Quality Measures none Orders Category Date Time Status Bedside Blood Glucose NOW Care 11/30/24 10:36 Active Bedside COVID-19 Antigen Test NOW Care 11/30/24 10:37 Active Bedside Influenza A&B Antigen Test NOW Care 11/30/24 10:[address] Screening NOW Care 11/30/24 10:37 Active Pallet Rectifier now Care 11/30/24 10:36 Active Continuous Pulse Oximetry NOW Care 11/30/24 10:36 Completed Initiate Warming Therapy NOW Care 11/30/24 14:28 Active Insert IV NOW Care 11/30/24 10:36 Active Strict Intake and Output Routine Care 11/30/24 10:[address] chest abdomen pelvis w Stat Exams 11/30/24 10:37 Completed US venous doppler UE BI Stat Exams 11/30/24 10:34 Completed XR chest 1V SEPSIS PROTOCOL Stat Exams 11/30/24 10:36 Completed Blood Culture (Lab) Stat Lab 11/30/24 11:04 Received CBC Stat Lab 11/30/24 11:04 Completed Comprehensive Metabolic Panel Stat Lab 11/30/24 11:04 Completed Lactate (Lactic Acid) Stat Lab 11/30/24 11:04 Completed Partial Thromboplastin Time Stat Lab 11/30/24 11:04 Completed Procalcitonin Stat Lab 11/30/24 11:04 Completed Prothrombin Time with INR Stat Lab 11/30/24 11:04 Completed Troponin I Stat Lab 11/30/24 11:04 Completed Urinalysis Stat Lab 11/30/24 10:36 Ordered Urine Culture Stat Lab 11/30/24 10:36 Ordered Acetaminophen Ivpb [Ofirmev Inj] Med 11/30/24 10:39 Discontinued 1,000 mg in 100 ml IV NOW Dextrose 50% Syr [D50w Syringe Abboject] Med 11/30/24 10:56 Discontinued 25 ml IVP X1 ONE Sodium Chloride 0.9% 1000 ml [Ns] 1,000 ml Med 11/30/24 10:38 Discontinued IV 999 mls/hr cefTRIAXone/D5w 1gm IV premix [Rocephin/D5w 1gm IV Med 11/30/24 10:40 Discontinued premix] 1 gm in 50 ml IV X1 EKG (RT) Stat RT 11/30/24 10:36 Draft Oxygen Delivery NOW RT 11/30/24 10:36 Active Reevaluation(s) Reevaluation #1: Nurse informed me that blood glucose had dropped from 96 (according to EMS) to now 72. Patient has history of diabetes. Time: 10:57 Reevaluation #2: Patient is not making any urine. CT will be ordered. Time: 11:35 Vital Signs Vital signs: Vital Signs Temperature 99.0 F 11/30/24 10:52 Pulse Rate 87 11/30/24 10:52 Respiratory Rate 18 11/30/24 10:52 Blood Pressure 154/70 H 11/30/24 10:52 Pulse Oximetry (%) 91 L 11/30/24 10:52 Oxygen Delivery Method Room Air 11/30/24 10:52 Oxygen Flow Rate 2 11/30/24 10:52 Altered Mental Status MDM Narrative MDM Narrative:: I, Autumn Cruz, am scribing for and in the presence of Dr. Jones. Patient data External records reviewed:: [facility] previous records Clinical information provided by:: patient and family (son) Social determinants that could affect healthcare access:: none Patient has the following chronic illnesses:: renal failure on dialysis, diabetes mellitus, hypertension on medications, stroke, and severe dementia, currently on hospice with recent change to DNR status How is presenting disease/condition affected by chronic disease/condition?: exacerbated by Evaluation data The following diagnostics were reviewed and interpreted by me:: lab results, radiology exam(s) and EKG tracing(s) (My interpretation: EKG performed at 1049 hours, normal sinus rhythm, rate 87, normal intervals, normal axis, no ectopy, no signs of acute ischemia, no STEMI) Lab and/or radiology exams considered but not ordered:: none Interpretation Summary: Procedure(s): XR chest 1V SEPSIS PROTOCOL Accession Number(s): [id number] cc: Nishant Sellers MD; Kavin Jones MD; Neda Sparks MD~ Examination: AP chest single view Technique one AP portable supine chest single view Date and time: November 30, 2024 1215 hours Comparison the 2023 INDICATIONS: Sepsis protocol. FINDINGS: Mild prominence cardiac contour Bilateral perihilar basilar pneumonia Significant layering right pleural fluid Right internal jugular dialysis catheter satisfactory position Prominent vascular congestion Prominent osteopenia IMPRESSION: Bilateral perihilar basilar pneumonia. Significant right pleural fluid Suspicious for mild associated heart failure Dictated By: Nishant Sellers MD Procedure(s): US venous doppler UE BI Accession Number(s): [id number] cc: Nishant Sellers MD; Kavin Jones MD; Neda Sparks MD~ Examination: Venous duplex upper extremity sonogram, bilateral. Date and time of exam: November 30, 2024 0025 hours INDICATIONS: Right arm swelling 3 months left arm swelling today Technique: Multiple sonographic images of the deep venous system have been obtained. B-mode/2-D grayscale imaging of vascular structures and Doppler spectral analysis (waveforms) and color performed Both legs are examined. Findings: Deep venous systems do not demonstrate abnormal echogenicity. All visualized deep veins exhibit compressibility. All visualized deep veins exhibit augmentation. Impression: Negative for deep vein thrombosis Dictated By: Nishant Sellers MD Procedure(s): CT chest abdomen pelvis w Accession Number(s): [id number] cc: Nishant Sellers MD; Kavin Jones MD; Neda Sparks MD~ Examination: CT chest with intravenous contrast CT abdomen with intravenous contrast CT pelvis with intravenous contrast 2-D coronal and sagittal reconstructions Time of exam: November 30, 2024 1316 hours, comparison 01/07/2022 INDICATIONS: Hypoxia, sepsis, generalized abdominal pain today CTDI: vol (mGy) : 8.32 DLP: (mGycm): 607 Technique: Multiple axial images of the chest, abdomen and pelvis with intravenous contrast, 3.0 mm slice thickness. Images obtained post intravenous injection Isovue 370 60 cc. 2-D sagittal and coronal reconstructions. Low dose protocols were performed. One or more of the following dose reduction techniques were used; automated exposure control, adjustment of the mA and/or KV according to patient size, use of iterative reconstruction technique. Findings: 6 mm, 4 mm, 4 mm right thyroid nodules No thoracic aortic aneurysmal dilatation. No pulmonary artery emboli on this non-CTA study No paratracheal tracheobronchial or bronchopulmonary adenopathy. Significant bibasilar pneumonia, large right pleural effusion minimal left pleural fluid Liver is irregular in contour, hepatomegaly 19 cm Tiny gallstones Spleen is not enlarged No pancreatic mass No common bile duct or common hepatic duct stones IVC filter satisfactory position Aorta normal size No bowel obstruction No diverticulitis Large amounts of air and stool in the rectum with rectal tube Significant osteopenia IMPRESSION: Multiple right thyroid nodules No pulmonary artery emboli on this non-CTA study Significant bibasilar pneumonia. Large right pleural effusion. Primary hepatocellular disease Recommend hepatobiliary sonography to confirm gallstones and exclude thickening gallbladder wall. No common hepatic or common bile duct stones. No bowel obstruction or diverticulitis Dictated By: Nishant Sellers MD Medications / Prescriptions Medications or Prescriptions considered but not ordered:: none Medication administrations:: Medication Administration History Discontinued Medications Dextrose (Dextrose 50%-Water Inj 50 Ml Syringe) 25 ml IVP X1 ONE Stop: 11/30/24 10:57 Last Admin: 11/30/24 11:05 Dose: 25 ml Documented By: MARY Sodium Chloride (Ns) 1,000 mls @ 999 mls/hr IV .Q1H1M ONE Stop: 11/30/24 11:38 Last Infusion: 11/30/24 13:03 Dose: Infused Documented By: Infusion: 11/30/24 11:52 Dose: 999 mls/hr Documented By: Infusion: 11/30/24 11:17 Dose: 0 mls/hr Documented By: Admin: 11/30/24 11:14 Dose: 999 mls/hr Documented By: MARY Acetaminophen (Ofirmev Inj) 1,000 mg in 100 mls @ 250 mls/hr IV NOW ONE Stop: 11/30/24 11:02 Last Infusion: 11/30/24 11:52 Dose: Infused Documented By: Admin: 11/30/24 11:13 Dose: 250 mls/hr Documented By: MARY Ceftriaxone Sodium/Dextrose (Rocephin/D5w 1gm Iv Premix) 1 gm in 50 mls @ 100 mls/hr IV X1 ONE Stop: 11/30/24 11:09 Last Infusion: 11/30/24 11:52 Dose: Infused Documented By: Admin: 11/30/24 11:14 Dose: 100 mls/hr Documented By: MARY see above Consultations Consultation(s) initiated? (list below): Yes Consultation #1 (Physician, Specialty, Details): Discussed test HPI, PMHx, lab, radiology results and/or management with resident working with the hospitalist. Will admit for further evaluation and management. Accepts patient for admission. Time: 15:47 Diagnosis Differential diagnosis altered mental status: other (Sepsis, line-related or dialysis-associated infection, UTI, and pneumonia.) Most likely diagnosis given after review of the tests above:: Bilateral pneumonia Hypoxia Large pleural effusion Admission Indicated Admission indicated?: indicated Admission Request Was there a request for admission?: Yes Admission Attestation Admission request attestation: Discussed case with [] from Hospitalist service regarding admission. Discussed patients ED course, exam findings, labs, and radiology results. The Hospitalist [agrees,declines] to accept the patient for admission. Disposition Plan Disposition Plan: Admit Discharge Plan Plan Patient Disposition: Admit Acute Care w/in Hospital Prescriptions/Referrals Prescriptions/Med Rec: No Action clonidine HCl 0.1 mg tablet 0.1 mg PO PRN PRN (Reason: blood pressure) Patient Comments: take 1 tablet by mouth four times a day Rx Instructions: systolic above 175 divalproex 250 mg tablet,delayed release (DR/EC) 250 mg PO BID Patient Comments: TAKE ONE TABLET (250MG) BY MOUTH TWICE DAILY FOR AGITATION DO NOT CHEW OR CRUSH SWALLOW WHOLE doxazosin 1 mg tablet 1 mg PO BID Patient Comments: TAKE ONE TABLET (1MG) BY MOUTH TWICE DAILY FOR HIGH BLOOD PRESSURE clonazepam 1 mg tablet 1 mg PO HS Patient Comments: TAKE ONE TABLET BY MOUTH THREE TIMES DAILY NEEDED FOR ANXIETY nifedipine 30 mg tablet extended release 60 mg PO BID Patient Comments: take 2 tablets by mouth twice a day mirtazapine 30 mg tablet 30 mg PO HS B-complex with vitamin C Tablet 1 tab PO QDAY atorvastatin [Lipitor] 10 mg Tablet 10 mg PO QPM Qty: 30 0RF Eliquis 2.5 mg tablet 2.5 mg PO BID Qty: 30 1RF memantine 5 mg Tablet 5 mg PO BID Referrals: Neda Sparks MD [Primary Care Provider] - In 1 week Problem List Clinical Impression: Bilateral pneumonia, Hypoxia, Large pleural effusion Patient/Caregiver Discharge Instructions Print Language: Dustin Stand Alone Forms: Layne Award Info., Patient Portal Info Letter
--- NOTE | 2024-11-30 10:36 | EKG_ITS ---
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
[2024-11-30] MEDS: DEXTROSE 50%-WATER INJ 50 ML SYRINGE 25 ML IVP (11:05)
[2024-11-30] MEDS: ACETAMINOPHEN IVPB 1,000 MG/100 ML VIAL 250 MG IV (11:13)
[2024-11-30] MEDS: cefTRIAXone/D5w 1gm IV premix 1 GM/50 ML BAG IV (11:14)
[2024-11-30] MEDS: SODIUM CHLORIDE 0.9% 1000 ML 1,000 ML 999 ML IV (11:14)
[2024-11-30 11:17] LABS: Basophils # (Auto) 0.0 Thou/mm3 (0.0-0.2); Basophils % (Auto) 0 % (0-2.5); Eosinophils # (Auto) 0.1 Thou/mm3 (0.0-0.5); Eosinophils % (Auto) 1 % (0-10); Hematocrit 30.1 % (41.0-53.0); Hemoglobin 9.8 g/dL (13.5-16.0); Immature Granulocytes Auto 0.04 Thou/mm3 (0.00-0.00); Lymphocytes # (Auto) 1.1 Thou/mm3 (1.0-4.8); Lymphocytes % (Auto) 12 % (10-50); Mean Corpuscular HGB Conc 32.6 g/dl (31.0-37.0); Mean Corpuscular Hemoglobin 29.3 pg (25.0-35.0); Mean Corpuscular Volume 90 fL (80-100); Monocytes # (Auto) 0.6 Thou/mm3 (0.0-0.8); Monocytes % (Auto) 6 % (0-12); Neutrophils # (Auto) 7.8 Thou/mm3 (1.8-7.7); Neutrophils % (Auto) 81 % (37-80); Nucleated Red Blood Cell # 0.00 Thou/mm3 (0.00-0.00); Nucleated Red Blood Cell % 0 /100 WBC (0); Platelet Count 156 Thou/mm3 (140-440); RDW Standard Deviation 56.5 fL (35.1-43.9); Red Blood Count 3.34 Miln/mm3 (4.50-5.90); White Blood Count 9.5 Thou/mm3 (3.8-10.6)
[2024-11-30 11:18] LABS: Lactate (Lactic Acid) 0.8 mMol/L (0.4-2.0)
[2024-11-30 11:35] LABS: INR 1.1 (0.9-1.3); Partial Thromboplastin Time 31.6 Seconds (22.0-36.0); Prothrombin Time 12.3 Seconds (9.0-12.2)
[2024-11-30 11:52] LABS: Alanine Aminotransferase < 7 U/L (10-49); Albumin, Serum 3.1 gm/dL (3.4-4.8); Albumin/Globulin Ratio 1.0 (1.2-2.2); Alkaline Phosphatase 88 U/L (46-116); Anion Gap 12 (7-16); Aspartate Amino Transferase 25 U/L (0-34); BUN/Creatinine Ratio 6 Ratio (12-20); Bilirubin,Total 0.2 mg/dL (0.3-1.2); Blood Urea Nitrogen 22 mg/dL (9-23); Calcium 8.6 mg/dL (8.3-10.6); Calcium (Corrected) 9.3 mg/dL (8.5-10.1); Carbon Dioxide 25.5 mMol/L (20.0-31.0); Chloride 99 mMol/L (98-107); Creatinine (Component) 3.6 mg/dL (0.6-1.3); Estimated Creatinine Clearance 11.8 mL/min (>60); Globulin 3.2 gm/dL (2.3-3.5); Glucose 79 mg/dL (74-106); Osmolality,Calculated 274 (275-295); Potassium 4.0 mMol/L (3.4-5.1); Procalcitonin 1.08 ng/ml (0.0-0.49); Sodium 136 mMol/L (136-145); Total Protein 6.3 gm/dL (5.7-8.2); Troponin I 0.025 ng/mL (0.0-0.045); eGFR 17 See Note
--- NOTE | 2024-11-30 15:58 | ESHP_ITS ---
<Statement entered by Anthony Landeros MD - 11/30/24 17:49> I have reviewed the note and agree with the resident's assessment & plan with exceptions as below. I have personally reviewed labs, imaging, home meds/prior records, examined the patient, formulated and discussed management plan with the IM team. Patient examined at bedside today. Family present at bedside who is current medical decision maker. Patient's son was told that patient does have pleural effusion and was asked if thoracentesis would be an option for the patient. Patient said that he would like to discuss with his family if this would be an option at this time and wants to continue with IV antibiotics at this time. Patient's son did report that patient is on hospice and CODE STATUS was recently changed to DNR. Hold off on consulting ICU at this time until patient's family has made a decision in regards to getting a thoracentesis. Will continue with IV antibiotics, Rocephin and azithromycin. Will consult nephrology for history of hemodialysis. Patient does not make any urine as Lasix cannot be an option for this patient. Will consult speech therapy and registered dietitian due to concern for failure to thrive and anorexia. Concern for cholecystitis, will order ultrasound abdomen. Repeat hematology and chemistry in the a.m. #Acute hypoxic respiratory failure #Community-acquired pneumonia, likely gram-negative versus gram-positive organisms #Right-sided pleural effusion #ESRD #Failure to thrive #Anorexic Anthony Landeros, PGY-2 Internal Medicine Documentation for date of: 11/30/24 HPI History of Present Illness History of present illness: 74 year old male with PMH ESRD with no urine output on HD (MWF with Dr. Sparks), dementia, CVA, T2DM, HLD, HTN, presenting with altered mental status and reported fever of almost 103F at HD center prior to starting dialysis. Patient accompanied by son. Son reports that patient has had increasingly altered mentation for the last 3 days. He also notes patient had complained of severe heel pain a few days ago and became sedated with morphine 0.25 mg. He required O2 2L NC yesterday, but was not on O2 at baseline prior to that. Son also notes cough, but states patient is unable to expectorate sputum. He also started noticing bilateral upper extremity swelling in the last 24 hours. Son is not sure if they want patient to get thoracentesis done, given patient is now on hospice and DNR, as well as history of lung collapse following thoracentesis in the past. He would like to speak with rest of family first. ED course: Vitals: 99F --> 94.6F, SpO2 91 on RA --> 94 on 2L NC, 154/70 Labs: Hgb 9.8, Cr 3.6, PT 12.3, Albumin 3.1, pro-calcitonin 1.08, negative troponin Imaging: Venous doppler: No DVT CXR: Bilateral perihilar basilar pneumonia. Significant right pleural fluid. Suspicious for mild associated heart failure C/A/P CT Multiple right thyroid nodules. No pulmonary artery emboli on this non-CTA study. Significant bibasilar pneumonia. Large right pleural effusion. Primary hepatocellular disease. Recommend hepatobiliary sonography to confirm gallstones and exclude thickening gallbladder wall. No common hepatic or common bile duct stones. No bowel obstruction or diverticulitis. EKG: sinus rhythm, non-specific ST and T wave abnormality, low QRS voltage in extremity leads Treatments: O2 2L NC PMH: ESRD on HD (MWF with Dr. Sparks), dementia, CVA, T2DM, HLD, HTN PSH: Tonsillectomy, adenoidectomy, and Right second toe amputation per chart review PFH: Cardiac history in family per chart review Medications: med rec pending. Not on blood thinners, per son. Allergies: NKDA, per son Social Hx: - Tobacco use: Denies - Alcohol: Denies - Drugs: Denies - Job: Retired. Previously ran hotels - Housing: lives with son Review of Systems Review of Systems Narrative Review of Systems: All systems reviewed, normal except as documented Exam Vital Signs Temp Pulse Resp BP Pulse Ox O2 Del Method O2 Flow Rate 96.4 F L 71 22 H 112/65 94 L Nasal Cannula 2 11/30/24 15:40 11/30/24 15:40 11/30/24 15:40 11/30/24 15:40 11/30/24 15:40 11/30/24 15:40 11/30/24 15:40 Narrative Exam GENERAL: Thin and frail male. Somewhat alert, but hard to assess orientation. Patient only speaks Dada and did speak a few words to son during examination. HEENT: Normocephalic. CV: Regular rate and rhythm. S1 and S2 heard. No murmurs, however, difficult to hear. PULM: Some wheezing, but difficult to hear. On O2 2L NC. EXTREMITIES: Swelling of bilateral arms and warm to touch. 2+ pitting edema of lower extremities bilaterally up to thighs. SKIN: Warm to touch. Dry. NEURO: No facial asymmetry. Results: Labs 11/30/24 11:04 11/30/24 11:04 Labs: Short CBC 11/30/24 Range/Units 11:04 WBC 9.5 (3.8-10.6) Thou/mm3 Hgb 9.8 L (13.5-16.0) g/dL Hct 30.1 L (41.0-53.0) % Plt Count 156 (140-440) Thou/mm3 BMP 11/30/24 11:04 Sodium 136 Potassium 4.0 Chloride 99 Carbon Dioxide 25.5 BUN 22 Creatinine 3.6 H Glucose 79 Calcium 8.6 Cardiac Enzymes 11/30/24 Range/Units 11:04 Troponin I 0.025 (0.0-0.045) ng/mL Liver Function 11/30/24 Range/Units 11:04 Total Bilirubin 0.2 L (0.3-1.2) mg/dL AST 25 (0-34) U/L ALT < 7 L (10-49) U/L Alkaline Phosphatase 88 (46-116) U/L Albumin 3.1 L (3.4-4.8) gm/dL Quality Measures Quality Measures none Advance care planning discussed with:: child (son) Medications Home Medications and Allergies Home Medications ?Medication ?Instructions ?Recorded ?Confirmed ?Type memantine 5 mg tablet 5 mg PO BID 01/28/22 4 History B-complex with vitamin C 1 tab PO QDAY 09/07/2309/06 History clonazepam 1 mg tablet 1 mg PO HS 09/07/23 09/07/23 History clonidine HCl 0.1 mg tablet 0.1 mg PO PRN PRN blood pr essure 09/07/23 09/07/23 History divalproex 250 mg tablet,delayed 250 mg PO BID 4 09/07/23 History release doxazosin 1 mg tablet 1 mg PO BID 09/07/23 4 History mirtazapine 30 mg tablet 30 mg PO HS 09/07/23 4 History nifedipine 30 mg tablet,extended 60 mg PO BID 09/07/23 09/07/23 History release Allergies Allergy/AdvReac Type Severity Reaction Status Date / Time No Known Allergies Allergy Verified 04/02/24 15:21 Visit Medications Acetaminophen (Acetaminophen 325 Mg Tablet) 650 mg PO Q6H PRN PRN Reason: Fever >101.5 Stop: 12/30/24 15:27 Acetaminophen (Acetaminophen 325 Mg Tablet) 650 mg PO Q6H PRN PRN Reason: PAIN SCALE 1-3 (mild Stop: 12/30/24 15:27 Hydrocodone Bitart/Acetaminophen (Hydrocodone/Apap 5/325 Tablet) 1 tab PO Q4HR PRN PRN Reason: PAIN SCALE 4-6 (Moderate Stop: 12/05/24 15:27 Albuterol/Ipratropium (Albuterol/Ipratropium (Duoneb) Rt Salud 3 Ml Nebu) 3 ml INH Q6HRRT PRN PRN Reason: shortness of breath Stop: 12/30/24 18:59 Heparin Sodium (Porcine) (Heparin Sod Inj 5000 Unit/Ml Vial) 5,000 unit SC Q12H LESLIE Stop: 12/14/24 20:59 Morphine Sulfate (Morphine Sulf Inj 10 Mg/Ml Vial) 0.25 mg IVP Q2H PRN PRN Reason: Pain Scale 7-10 (Severe) Stop: 12/05/24 15:27 Ondansetron HCl (Ondansetron Inj 2 Mg/Ml Inj 2 Ml) 4 mg IVP Q6H PRN; Protocol PRN Reason: NAUSEA OR VOMITING Stop: 12/30/24 15:27 Pantoprazole Sodium (Pantoprazole Inj 40 Mg Vial) 40 mg IVP QDAY LESLIE Stop: 12/31/24 08:59 Sodium Chloride (Sodium Chloride Rt 10% 15 Ml Nebu) 5 ml INH X1 ONE Stop: 11/30/24 15:29 Discontinued Medications Dextrose (Dextrose 50%-Water Inj 50 Ml Syringe) 25 ml IVP X1 ONE Stop: 11/30/24 10:57 Last Admin: 11/30/24 11:05 Dose: 25 ml Sodium Chloride (Ns) 1,000 mls @ 999 mls/hr IV .Q1H1M ONE Stop: 11/30/24 11:38 Last Infusion: 11/30/24 13:03 Dose: Infused Acetaminophen (Ofirmev Inj) 1,000 mg in 100 mls @ 250 mls/hr IV NOW ONE Stop: 11/30/24 11:02 Last Infusion: 11/30/24 11:52 Dose: Infused Ceftriaxone Sodium/Dextrose (Rocephin/D5w 1gm Iv Premix) 1 gm in 50 mls @ 100 mls/hr IV X1 ONE Stop: 11/30/24 11:09 Last Infusion: 11/30/24 11:52 Dose: Infused Assessment & Plan Plan Assessment 74 year old male with PMH ESRD with no urine output on HD (MWF with Dr. Sparks), dementia, CVA, T2DM, HLD, HTN, on hospice, admitted for pneumonia and possible thoracentesis for large right pleural effusion. #Pneumonia, bilateral, likely secondary to gram-negative versus anaerobic versus atypical organisms #Large right pleural effusion Significant bibasilar pneumonia and large right pleural effusion on CXR and Chest CT. Son uncertain if they want to get thoracentesis at this time and would like to discuss with family first. He states patient has had a thoracentesis done in the past that resulted in a collapsed lung. Plan: - Consult ICU if family decides to get thoracentesis. - Start ceftriaxone 1g IV QD - Start azithromycin 500 mg IV QD - Blood cultures ordered, f/u - Sputum culture ordered, f/u - UA and urine culture ordered, f/u # Acute encephalopathy in setting of chronic dementia likely secondary to toxic- metabolic in nature # History of dementia - CTM, treat pneumonia and will likely have a thoracentesis which we will check cytology and fluid studies #ESRD on HD (MWF) # Fluid overload Follows with Dr. Sparks. Patient was unable to get HD on 11/30 due to reported fever of close to 103F. Also with bilateral upper extremity swelling, possibly due to volume overload from missed HD. Plan: - Consulted Nephrology (Dr. Sparks) for HD while admitted. Appreciate recs. #Thyroid nodules 6mm, 4mm, and 4mm right thyroid nodules found on CT. Plan: - TSH ordered, f/u #Cholelithiasis Tiny gallstones found on CT. Plan: - Abdominal US ordered, f/u #Dementia #Cachexia Plan: - swallow eval ordered, f/u - speech eval ordered, f/u - RD consulted, f/u #Hypertension #Hx CVA Plan: - Plan to restart home meds, pending med rec #Hyperlipidemia Plan: - Plan to restart home meds, pending med rec #Non-insulin dependent type 2 diabetes Plan: - Plan to restart home meds, pending med rec - insulin sliding scale Health Maintenance Disposition: Tele DVT prophylaxis: Heparin GI prophylaxis: pantoprazole Diet: Pending swallow eval CODE STATUS: DNR Case discussed with my attending Dr. Moore, and senior resident, Dr. Tigre Farmer, OMS4 Attending Provider Attestation/Addendum After examination of the patient and review of the clinical data I feel that this patient needs admission to the hospital for further treatment/evaluation. I have discussed and was present for the essential components of the history, physical examination, diagnosis, and treatment plan with the resident. I agree with the patient's care as documented by the resident and amended herein by me. Tarun Moore, DO. Although this document has been carefully reviewed, there may still be some phonetic and other typographical errors. These errors are purely grammatical due to imperfections in the software program and should not be construed in any way to compromise the substance of the patient's medical care during this visit. In addition to resident note above, the patient was reportedly on hospice care and only recently changed to DNR status which is very confusing. Will touch base with social economist tomorrow to try to iron out the details to see what exactly the family wants as far as management is concerned. Patient will likely need a gallbladder ultrasound t to assist in ruling out cholecystitis, will start the patient on azithromycin and ceftriaxone for presumed community- acquired pneumonia secondary to gram-negative versus anaerobic versus atypical organisms, nephrology been consulted for routine hemodialysis and we will likely consult the ICU team for possible thoracentesis tomorrow if the family is in agreement. Continue to monitor closely while he is here.
--- NOTE | 2024-11-30 16:16 | XR_ITS ---
Examination: Abdomen sonogram, complete Date and time of exam: November 30, 2024 10:42 PM INDICATIONS: Abdominal pain, cholelithiasis on CT abdomen study this afternoon. Technique: Multiple real-time grayscale transabdominal sonographic images of the abdomen have been obtained. Findings: Minimal gallbladder sludge Gallbladder wall 0.2 cm but a edema around the gallbladder Common bile duct 0.3 cm Pancreatic head 1. 4:00 PM Aorta not enlarged. Liver 12.1 cm lobular contour Normal hepatopedal portal venous flow Patent IVC Right kidney 7.2 cm renal cortex 0.8 cm 10 mm upper pole cyst No acute not visualized Spleen not visualized. IMPRESSION: Limited study Suspicious for edema around the gallbladder, consider HIDA scan or MRCP follow-up to exclude cholecystitis
--- NOTE | 2024-11-30 16:38 | PC.NURSE ---
ANDREAS DE JESUS REMOVED DUE TO PT TEMP OF 98.2F
[2024-11-30] MEDS: AZITHROMYCIN INJ 500 MG in SODIUM CHLORIDE 0.9% 250 ML 250 ML 250 MG IV (17:40)
--- NOTE | 2024-11-30 18:51 | PC.NURSE ---
PER SON CATHLEEN, HE DOES NOT WANT A CHEST TUBE PLACE ON PT, AND ONLY WANTS TO HAVE THE PT GET ANTIBIOTICS.
--- NOTE | 2024-11-30 21:22 | PC.NURSE ---
Med rec not completed. Pts. family will bring updated medication list to the hospital in the morning of 12/01/2024.
[2024-11-30] MEDS: HEPARIN SOD INJ 5000 UNIT/ML VIAL SC (21:53)
[2024-11-30] MEDS: LABETALOL INJ 5 MG/ML VIAL 20 ML 10 MG IVP (23:53)
--- NOTE | 2024-11-30 23:53 | PD.RESEVENT ---
Documentation for date of: 11/30/24 Event Note Event Note: 11/30/2024: Rapid response called sometime around 11:45 PM for systolic BP in the 200s. Patient seen and assessed in hospital bed; he is awake and did not complain of a headache. His airway/breathing/circulation are intact and vitals largely stable other than blood pressure (heart rate 77). As a result, decision was made to give IV labetalol 10 mg x1. Will continue to monitor for any acute changes. (Patient is on hospice.) -Jd Ashton, PGY-1 Internal Medicine [facility]
[2024-12-01] VITALS (21 sets, daily range): BP systolic 108–219; BP diastolic 48–106; PULSE 61–77; RESP 12–20; TEMP 35.6–36.6; O2SAT 77–99; BMI 17.4
[2024-12-01] MEDS: hydrALAZINE INJ 20 MG/ML VIAL 10 MG IVP ×3 (01:57→07:35)
[2024-12-01] MEDS: LABETALOL INJ 5 MG/ML VIAL 20 ML 10 MG IVP (04:20)
--- NOTE | 2024-12-01 04:44 | PC.RT ---
PT UNABLE TO PRODUCE SPUTUM FOR SAMPLE. NURSING AWARE.
[2024-12-01 05:52] LABS: Basophils # (Auto) 0.0 Thou/mm3 (0.0-0.2); Basophils % (Auto) 0 % (0-2.5); Eosinophils # (Auto) 0.1 Thou/mm3 (0.0-0.5); Eosinophils % (Auto) 1 % (0-10); Hematocrit 33.9 % (41.0-53.0); Hemoglobin 11.1 g/dL (13.5-16.0); Immature Granulocytes Auto 0.06 Thou/mm3 (0.00-0.00); Lymphocytes # (Auto) 1.1 Thou/mm3 (1.0-4.8); Lymphocytes % (Auto) 14 % (10-50); Mean Corpuscular HGB Conc 32.7 g/dl (31.0-37.0); Mean Corpuscular Hemoglobin 29.3 pg (25.0-35.0); Mean Corpuscular Volume 89 fL (80-100); Monocytes # (Auto) 0.3 Thou/mm3 (0.0-0.8); Monocytes % (Auto) 4 % (0-12); Neutrophils # (Auto) 6.8 Thou/mm3 (1.8-7.7); Neutrophils % (Auto) 80 % (37-80); Nucleated Red Blood Cell # 0.00 Thou/mm3 (0.00-0.00); Nucleated Red Blood Cell % 0 /100 WBC (0); Platelet Count 179 Thou/mm3 (140-440); RDW Standard Deviation 57.1 fL (35.1-43.9); Red Blood Count 3.79 Miln/mm3 (4.50-5.90); White Blood Count 8.4 Thou/mm3 (3.8-10.6)
[2024-12-01 06:03] LABS: INR 1.1 (0.9-1.3); Partial Thromboplastin Time 28.7 Seconds (22.0-36.0); Prothrombin Time 11.6 Seconds (9.0-12.2)
--- NOTE | 2024-12-01 06:03 | XR_ITS ---
Examination: AP chest single view Technique one AP portable semiupright chest single view Date and time: December 01, 2024, 0706 hours, comparison November 30, 2024 INDICATIONS: Post orogastric tube placement FINDINGS: Orogastric tube in the stomach satisfactory position Heart failure pattern with enlarged cardiac contour prominent vascular congestion and perihilar edema. Bilateral lung opacity consistent with pneumonia with significant right pleural fluid Right internal jugular dialysis catheter tip SVC IMPRESSION: Mild heart failure. Bilateral pneumonia. Significant right pleural fluid. Orogastric tube in the stomach satisfactory position
[2024-12-01 06:24] LABS: Alanine Aminotransferase < 7 U/L (10-49); Albumin, Serum 3.0 gm/dL (3.4-4.8); Albumin/Globulin Ratio 1.0 (1.2-2.2); Alkaline Phosphatase 92 U/L (46-116); Anion Gap 13 (7-16); Aspartate Amino Transferase 32 U/L (0-34); BUN/Creatinine Ratio 6 Ratio (12-20); Bilirubin,Total < 0.2 mg/dL (0.3-1.2); Blood Urea Nitrogen 25 mg/dL (9-23); Calcium 8.7 mg/dL (8.3-10.6); Calcium (Corrected) 9.5 mg/dL (8.5-10.1); Carbon Dioxide 23.0 mMol/L (20.0-31.0); Chloride 100 mMol/L (98-107); Creatinine (Component) 3.9 mg/dL (0.6-1.3); Estimated Creatinine Clearance 11.5 mL/min (>60); Globulin 3.1 gm/dL (2.3-3.5); Magnesium 1.9 mg/dL (1.6-2.6); Osmolality,Calculated 273 (275-295); Phosphorous 4.6 mg/dL (2.4-5.1); Potassium 4.6 mMol/L (3.4-5.1); Sodium 136 mMol/L (136-145); Thyroid Stimulating Hormone 21.42 uIU/mL (0.55-4.78); Total Protein 6.1 gm/dL (5.7-8.2); eGFR 15 See Note
[2024-12-01 06:26] LABS: Glucose 48 mg/dL (74-106)
[2024-12-01] MEDS: DEXTROSE 50%-WATER INJ 50 ML SYRINGE IVP (06:42)
--- NOTE | 2024-12-01 07:44 | PD.RESEVENT ---
Documentation for date of: 12/01/24 Event Note Event Note: 12/01/2024 ACCOUNTING INSTRUCTOR called at 7:25 AM for bed 376 for hypertension . Patient seen and assessed in hospital bed in no apparent distress. Physical exam did not reveal contributory findings. Recent chest xray from 6:00Am mild heart failure, bilateral pneumonia, significant right pleural fluid. Hydralazine 10mg IVP was given. Blood pressure remained elevated. Attending Dr. Moore made aware and will continue to monitor the patient as well. Patient seen and plan discussed with supervising attending Dr. Moore and supervising resident Dr. Landeros Note written by Tony Enriquez PGY-1
[2024-12-01] MEDS: HEPARIN SOD INJ 5000 UNIT/ML VIAL SC (08:29)
[2024-12-01] MEDS: NIFEdipine XL 30 MG TABCR 60 MG PO (08:30)
[2024-12-01] MEDS: cefTRIAXone/D5w 1gm IV premix 1 GM/50 ML BAG IV (08:33)
--- NOTE | 2024-12-01 09:03 | PCS.ST ---
Swallow Eval completed. See report for details. Recommend Dysphagia 1, Mildly thick liquids. Consider ngt feeds.
[2024-12-01] MEDS: AZITHROMYCIN INJ 500 MG in SODIUM CHLORIDE 0.9% 250 ML 250 ML 250 MG IV (09:13)
--- NOTE | 2024-12-01 10:19 | PC.PT ---
PT eval performed and patient resistant to ROM / strength assessment so transfers not attempted. Recommend patient return home w/ 24hr CGs if they are able to care for patient.
--- NOTE | 2024-12-01 10:33 | PD.NEPHCONS ---
History of Present Illness Data of Consult Consult date: 12/01/24 Requesting Physician: Raul Moore DO Primary Care Provider: Neda Sparks MD Consult Narrative Reason for consult: ESRD, need for hemodialysis History of present illness: Informant son Stephen, , family at bedside Mr. Roy is a 74-year-old origin gentleman with past medical history of ESRD secondary to hypertensive nephrosclerosis, advanced dementia (in hospice), history of stroke 2 years ago and has been wheelchair-bound since then, diabetes, Hypertension, dyslipidemia has been having significant functional decline in the last 6 months presented to the emergency department brought by the son with altered level of consciousness which is going on for the last 3 days. Patient apparently went to dialysis yesterday and could not do dialysis as he was very altered. He was brought to the ED. Recently in the last few months he was also noted to have swelling in the right upper extremity. Ultrasound did not show any clots. He has been confused given a dialysis unit. Patient also has recurrent episodes of pleural effusion and son decided to hold off on thoracentesis owing to his fragility. In the emergency department he was noted to have blood pressure 154/70, hemoglobin 9.8, creatinine 3.6, albumin 3.1. Doppler ultrasound showed no DVT. Chest x-ray showed a pneumonia, right pleural effusion. CT chest abdomen and pelvis showed thyroid nodules, no PE, hepatocellular disease with no acute pathology. Patient has moved to medical floor. Nephrology consultation requested in view of dialysis. Had a long conversation with family at bedside-patient has a significant functional decline for the last 6 months unable to sit in the dialysis chair for 3 hours 3 times weekly and unable to pull fluid due to his fluctuations in the blood pressure and worsening dementia. Son finally agreed for comfort care at the rehab. Patient currently on hospice at home. Conveyed the same to primary care team. No further dialysis will be offered. Son aware and is in agreement. cc:: cc: Raul Moore DO Review of Systems Review of Systems Narrative Review of Systems: Limited due to his mentation and confusion. Denies any chest pain. Past Medical History Past Medical History NEUROLOGIC: Positive Neurological Disorders, Cerebrovascular Accident, Transient Ischemic Attacks (TIA), Dementia, Peripheral Neuropathy, Subdural Hematoma, Head Trauma and Traumatic Brain Injury; Negative Alzheimer's Disease, Parkinson's Disease, Brain Tumor, Meningitis, Seizures, Epilepsy, Multiple Sclerosis, Cerebral Palsy, Amyotrophic Lateral Sclerosis (ALS/Angela Gehrig's), Guillain-[place] Syndrome, Spina Bifida, Paralysis, Chamorro's Palsy, Migraine or Spinal Cord Injury CARDIAC: Positive Cardiac Arrhythmia, Atrial Fibrillation, Hypercholesterolemia, Edema and Hypertension; Negative Cardiac Disorders, Myocardial Infarction, Angina, Heart Murmur, Coronary Artery Disease, Atherosclerotic Heart Disease, Peripheral Vascular Disease, Aneurysm, Congestive Heart Failure, Congenital Heart Disease, Valvular Heart Disease, Rheumatic Fever, Cardiomyopathy, Pericarditis, Cellulitis, Deep Vein Thrombosis, Hypotension or Varicose Veins RESPIRATORY: Positive Pneumonia; Negative Chronic Obstructive Pulmonary Disease (COPD), Asthma, Bronchitis, Emphysema, Pulmonary Fibrosis, Cystic Fibrosis, Tuberculosis, Pulmonary Embolism, Pulmonary Edema or Sleep Apnea GASTROINTESTINAL: Negative Gastrointestinal Disorders, Hepatitis, Cirrhosis, Pancreatitis, Celiac Disease, Gall Bladder Disease, Gastrointestinal Bleed, Esophageal Varices, Liu's Esophagus, Colitis, Ulcerative Colitis, Diverticulitis, Diverticulosis, Ulcer, Colorectal Cancer, Irritable Bowel, Crohn's Disease, Obstructive Bowel, Hiatal Hernia, Hemorrhoids, Gastroesophageal Reflux Disease or Obesity GENITOURINARY: Positive Genitourinary Disorders, Renal Disease (DIALYSIS PT) and Dialysis; Negative Kidney Stones, Polycystic Kidney Disease, Neurogenic Bladder, Inguinal Hernia, Prostate Cancer or Benign Prostatic Hyperplasia REPRODUCTIVE: Negative Breast Cancer, Genital Herpes, Gonorrhea, Syphilis or Testicular Cancer MUSCULOSKELETAL: Positive Osteomyelitis; Negative Musculoskeletal Disorders, Muscular Dystrophy, Myasthenia Gravis, Marfan's Syndrome, Bone Cancer, Arthritis, Rheumatoid Arthritis, Osteoporosis, Degenerative Disk Disease, Gout, Scoliosis, Carpal Tunnel Syndrome, Fibromyalgia, Fractures, Degenerative Joint Disease or Poliovirus ENT: Positive Cataracts and Head Trauma; Negative Glaucoma, Blind, Retinal Detachment, Macular Degeneration, Ear Infection, Deafness or Eye Prosthesis ENDOCRINE: Positive Endocrine Disorders and Diabetes Mellitus Type 2 (NO LONGER TAKE MED PER SON STEPHEN); Negative Diabetes Mellitus Type 1, Hypoglycemia, [place]'s Syndrome, Sumit's Disease, Hyperthyroidism, Hypothyroidism, Parathyroid Disease, Pituitary Disease, Systemic Lupus Erythematosus, Syndrome of Inappropriate Antidiuretic Hormone (SIADH), Adrenal Disease or Graves' Disease HEMATOLOGIC: Positive Blood Disorders and Anemia; Negative Leukemia, Hemophilia, Thalassemia, Sickle Cell Disease or Clotting Problems PSYCHO/SOCIAL: Positive Depression and Anxiety; Negative Psychiatric Problems, Schizophrenia, Recreational Drug Use, Bipolar Disorder, Behavior Problems, Self-Mutilation, Attention Deficit Disorder, Attention Deficit Hyperactivity Disorder, Post Traumatic Stress Disorder or Eating Disorder OTHER HISTORY: Positive Hospitalization, Falls and Blood Transfusions; Negative Autoimmune Disease, Down Syndrome, Autism, Developmental Delay, Shingles, Blood Transfusion Reaction, Anesthesia Reactions, Organ Transplant, Chemotherapy, Radiation Therapy, Hyperbaric Therapy, MRSA, VRSA, Vancomycin-Resistant Enterococci, Human Immunodeficiency Virus (HIV), Chicken Pox, Measles, Mumps, Rubella (Congolese Measles), Pertussis, Clostridium Difficile, Cancer, Breast Cancer, Cervical Cancer, Colorectal Cancer, Lung Cancer, Ovarian Cancer, Prostate Cancer or Testicular Cancer Family History FAMILY HISTORY: Positive Family Cardiac Disorders; Negative Family Psychiatric Problems, Family Respiratory Disorders, Family Gastrointestinal Problems, Family Cancer, Family Surgery or Family Anesthesia Reaction Surgical History SURGICAL: Positive Eye Surgery, Oral Surgery, Tonsillectomy, Adenoidectomy, Throat Surgery, Tracheostomy, Gastrostomy and Amputation; Negative Cardiac Surgery, Open Heart Surgery, Coronary Artery Bypass Graft, Valve Replacement, Vascular Surgery, Coronary Stent, Cardiac Catheterization, Pacemaker, Angiogram, Auto Implanted Cardiovert Defib, Carotid Endarterectomy, Endocrine Surgery, Thyroidectomy, Ear Surgery, Tympanostomy Tube, Nose Surgery, Cochlear Implant, Corneal Transplant, Abdominal Surgery, Gastric Bypass Surgery, Bowel Surgery, Nephrectomy, Transurethral Resection, Joint Replacement, Open Reduction Internal Fixation, Arthroscopy, Neurologic Surgery, Brain Shunt, Vasectomy or Organ Transplant Social History SMOKING STATUS: Never smoker SECOND HAND EXPOSURE: No SUBSTANCE USE: does not use Meds Home Medications and Allergies Home Medications ?Medication ?Instructions ?Recorded ?Confirmed ?Type memantine 5 mg tablet 5 mg PO BID 01/28/22 12/01/24 History B-complex with vitamin C 1 tab PO QDAY 09/07/23 12/01/24 History Held on 12/01/24. Instructions: resume with pcp clonazepam 1 mg tablet 1 mg PO HS 09/07/23 12/01/24 History clonidine HCl 0.1 mg tablet 0.1 mg PO BID blood pressure 09/07/23 12/01/24 History divalproex 250 mg tablet,delayed 250 mg PO BID 09/07/23 12/01/24 History release doxazosin 1 mg tablet 1 mg PO BID 09/07/23 12/01/24 History mirtazapine 30 mg tablet 30 mg PO HS 09/07/23 12/01/24 History nifedipine 30 mg tablet,extended 60 mg PO BID 09/07/23 12/01/24 History release hydralazine 50 mg tablet 75 mg PO 5 TIMES DAILY 12/01/24 12/01/24 History quetiapine 100 mg tablet (Seroquel) 100 mg PO BID 12/01/24 12/01/24 History Allergies Allergy/AdvReac Type Severity Reaction Status Date / Time No Known Allergies Allergy Verified 04/02/24 15:21 Exam Vital Signs Temp Pulse Resp BP Pulse Ox O2 Del Method O2 Flow Rate 36.2 C 65 12 120/60 94 L Room Air 1 12/01/24 12:00 12/01/24 12:00 12/01/24 12:00 12/01/24 12:00 12/01/24 12:00 12/01/24 12:00 12/01/24 06:23 FiO2 0 12/01/24 07:25 Narrative Exam GENERAL APPEARANCE: Patient lost significant amount of weight with temporal wasting. NG tube noted CARDIOVASCULAR: Heart regular, 2/6 murmurs LUNGS/CHEST: few rhonchi noted bilaterally ABDOMEN: Soft, nontender, nondistended. No masses. Normal bowel sounds. EXTREMITIES: No edema, clubbing or cyanosis. SKIN: Skin exam normal without any rashes MUSCULOSKELETAL: in bed NEUROLOGICAL :Confusion from dementia Results Labs 12/01/24 05:00 12/01/24 05:00 Labs: Short CBC 12/01/24 Range/Units 05:00 WBC 8.4 (3.8-10.6) Thou/mm3 Hgb 11.1 L (13.5-16.0) g/dL Hct 33.9 L (41.0-53.0) % Plt Count 179 (140-440) Thou/mm3 [facility] 12/01/24 05:00 Sodium 136 Potassium 4.6 D Chloride 100 Carbon Dioxide 23.0 BUN 25 H Creatinine 3.9 H Glucose 48 L* Calcium 8.7 Liver Function 12/01/24 Range/Units 05:00 Total Bilirubin < 0.2 L (0.3-1.2) mg/dL AST 32 (0-34) U/L ALT < 7 L (10-49) U/L Alkaline Phosphatase 92 (46-116) U/L Albumin 3.0 L (3.4-4.8) gm/dL Assessment & Plan Additional Assessment & Plan Additional Plan: # Altered mental status--- secondary to pneumonia/severe functional decline/worsening underlying dementia. Long conversation with son and family-agreed for comfort care and hospice-at rehab #ESRD on HD MWF Long conversation with the son-decided to hold off on further dialysis sessions. #Hypertension-poorly controlled. Has been a problem for years. #Elevated troponin- Dr. Mora had seen patient in the past-no further recommendations.? #Insulin-dependent DM Accu-Cheks, sliding scale #Normocytic anemia in setting of ESRD #Hyperlipidemia Resumed home atorvastatin Thank you Tarun for allowing me to participate in the care of Mr. Roy
[2024-12-01] MEDS: MEMANTINE HCL 5 MG TABLET PO (10:53)
[2024-12-01] MEDS: DIVALPROEX SOD 125 MG SPRINKLE 250 MG PO (10:53)
--- NOTE | 2024-12-01 11:03 | PC.DIETICIAN ---
Dietitian note: Pt meets criteria for severe protein calorie malnutrition R/T inadequate energy intake in acute illness as evidence by moderate loss of subcutaneous fat stores (orbital/buccal/triceps), mild muscle wasting (temporalis/interosseous/quadriceps) Nepro will be added per usual request by family. Thank you
--- NOTE | 2024-12-01 11:10 | PC.NURSE ---
Spoke with Dr. Landeros regarding patient's bp bieng low, 108/48. He is due for bp meds. Dr said to hold both medications and he will be up to see the patient.
[2024-12-01] MEDS: HYDROcodone/APAP 5/325 TABLET 1 TAB PO ×2 (11:37→15:41)
[2024-12-01 11:45] LABS: Free T4 (Free Thyroxine) 0.54 ng/dL (0.89-1.76)
--- NOTE | 2024-12-01 15:09 | PD.RESPRO ---
Documentation for date of: 12/01/24 Subjective Subjective Interval history: Patient examined at bedside today. Patient's family at bedside and have come to decision for no more hemodialysis and to pursue comfort care at halfway facility. They do not want any other treatments at this time. No other complaints at this time Exam Vital Signs Temp Pulse Resp BP Pulse Ox O2 Del Method O2 Flow Rate 97.1 F 65 12 148/65 H 94 L Room Air 1 12/01/24 12:00 12/01/24 14:36 12/01/24 12:00 12/01/24 14:36 12/01/24 12:00 12/01/24 12:00 12/01/24 06:23 FiO2 0 12/01/24 07:25 Narrative Exam GENERAL: Thin and frail male. Somewhat alert, but hard to assess orientation. Patient only speaks Dada and did speak a few words to son during examination. HEENT: Normocephalic. CV: Regular rate and rhythm. S1 and S2 heard. No murmurs, however, difficult to hear. PULM: Some wheezing, but difficult to hear. On O2 2L NC. EXTREMITIES: Swelling of bilateral arms and warm to touch. 2+ pitting edema of lower extremities bilaterally up to thighs. SKIN: Warm to touch. Dry. NEURO: No facial asymmetry. Objective Labs 12/01/24 05:00 12/01/24 05:00 Labs: Laboratory Results - last 24 hr 12/01/24 05:00 WBC 8.4 RBC 3.79 L Hgb 11.1 L Hct 33.9 L MCV 89 MCH 29.3 MCHC 32.7 RDW Std Deviation 57.1 H Plt Count 179 Neut % (Auto) 80 Lymph % (Auto) 14 [place] % (Auto) 4 Eos % (Auto) 1 Baso % (Auto) 0 Neut # (Auto) 6.8 Lymph # (Auto) 1.1 [place] # (Auto) 0.3 Eos # (Auto) 0.1 Baso # (Auto) 0.0 Immature Gran # (Auto) 0.06 H Absolute Nucleated RBC 0.00 Immature Gran % 1 H Nucleated RBC % 0 PT 11.6 INR 1.1 APTT 28.7 Sodium 136 Potassium 4.6 D Chloride 100 Carbon Dioxide 23.0 Anion Gap 13 BUN 25 H Creatinine 3.9 H Estim Creat Clear Calc 11.5 L eGFR 15 L BUN/Creatinine Ratio 6 L Glucose 48 L* Estimated Ave Glu mg/dL Cancelled Hemoglobin A1c Cancelled Calculated Osmolality 273 L Calcium 8.7 Corrected Calcium 9.5 Phosphorus 4.6 Magnesium 1.9 Total Bilirubin < 0.2 L AST 32 ALT < 7 L Alkaline Phosphatase 92 Total Protein 6.1 Albumin 3.0 L Globulin 3.1 Albumin/Globulin Ratio 1.0 L TSH 21.42 H Free T4 0.54 L Quality Measures Quality Measures none Advance care planning discussed with:: patient Assessment & Plan Assessment Current Active Medications: Generic Name Dose Route Start Last Admin Trade Name Freq PRN Reason Stop Dose Admin Acetaminophen 650 mg 11/30/24 15:28 Acetaminophen 325 Mg Tablet PO 12/30/24 15:27 Q6H PRN Fever >100.4 Hydrocodone Bitart/Acetaminophen 1 tab 11/30/24 15:28 12/01/24 11:37 Hydrocodone/Apap 5/325 Tablet PO 12/05/24 15:27 1 tab Q4HR PRN Administration PAIN SCALE 4-6 (Moderate Albuterol/Ipratropium 3 ml 11/30/24 15:23 Albuterol/Ipratropium (Duoneb) Rt Salud 3 Ml Nebu INH 12/30/24 18:59 Q6HRRT PRN shortness of breath Atorvastatin Calcium 10 mg 12/01/24 21:00 Atorvastatin Calcium 10 Mg Tablet PO 12/31/24 20:59 HS LESLIE Clonazepam 1 mg 12/01/24 09:32 Clonazepam 0.5 Mg Tablet PO 12/06/24 09:44 QDAY PRN anxiety Clonidine 0.1 mg 12/01/24 21:00 Clonidine Hcl 0.1 Mg Tablet PO 12/31/24 20:59 BID LESLIE Divalproex Sodium 250 mg 12/01/24 09:45 12/01/24 10:53 Divalproex Sod 125 Mg Sprinkle PO 12/31/24 09:44 250 mg BID LESLIE Administration Doxazosin Mesylate 1 mg 12/01/24 21:00 Doxazosin Mesylate 1 Mg Tablet PO 12/31/24 20:59 HS LESLIE Heparin Sodium (Porcine) 5,000 unit 11/30/24 21:00 12/01/24 08:29 Heparin Sod Inj 5000 Unit/Ml Vial SC 12/14/24 20:59 5,000 unit Q12HR LESLIE Administration Hydralazine HCl 10 mg 12/01/24 00:00 12/01/24 01:57 Hydralazine Inj 20 Mg/Ml Vial IVP 12/31/24 00:00 10 mg Q6H PRN Administration SBP > 160 Hydralazine HCl 75 mg 12/01/24 09:45 12/01/24 14:36 Hydralazine Hcl 25 Mg Tablet PO 12/31/24 09:44 Not Given TID LESLIE Azithromycin 500 mg/ Sodium 250 mls @ 250 mls/hr 12/01/24 09:00 12/01/24 09:13 Chloride IV 12/08/24 08:59 250 mls/hr QDAY LESLIE Administration Ceftriaxone Sodium/Dextrose 1 gm in 50 mls @ 100 mls/hr 12/01/24 09:00 12/01/24 08:33 Rocephin/D5w 1gm Iv Premix IV 12/08/24 08:59 100 mls/hr DAILY LESLIE Administration Memantine 5 mg 12/01/24 09:45 12/01/24 10:53 Memantine Hcl 5 Mg Tablet PO 12/31/24 09:44 5 mg BID LESLIE Administration Mirtazapine 30 mg 12/01/24 21:00 Mirtazapine 15 Mg Tablet PO 12/31/24 20:59 HS LESLIE Morphine Sulfate 0.25 mg 11/30/24 15:28 Morphine Sulf Inj 10 Mg/Ml Vial IVP 12/05/24 15:27 Q2H PRN Pain Scale 7-10 (Severe) Nifedipine 120 mg 12/02/24 09:00 Nifedipine Xl 30 Mg Tabcr PO 01/01/25 08:59 QDAY LESLIE Ondansetron HCl 4 mg 11/30/24 15:28 Ondansetron Inj 2 Mg/Ml Inj 2 Ml IVP 12/30/24 15:27 Q6H PRN NAUSEA OR VOMITING Protocol Pantoprazole Sodium 40 mg 12/01/24 09:00 12/01/24 08:29 Pantoprazole Inj 40 Mg Vial IVP 12/31/24 08:59 40 mg QDAY LESLIE Administration Quetiapine Fumarate 100 mg 12/01/24 09:45 12/01/24 10:53 Quetiapine Fumarate 100 Mg Tablet PO 12/31/24 09:44 100 mg BID LESLIE Administration Plan Assessment 74 year old male with PMH ESRD with no urine output on HD (MWF with Dr. Sparks), dementia, CVA, T2DM, HLD, HTN, on hospice, admitted for pneumonia and possible thoracentesis for large right pleural effusion. #Pneumonia, bilateral, likely secondary to gram-negative versus anaerobic versus atypical organisms #Large right pleural effusion #ESRD on HD (MWF) #Fluid overload #Thyroid nodules #Cholelithiasis #Dementia #Cachexia #Hypertension #Hx CVA #Hyperlipidemia #Non-insulin dependent type 2 diabetes Plan: ? Patient to be discharged to SNF with comfort care ? Resume home blood pressure medicines at this time including Clonidine, hydralazine, and nifedipine ? Will not remove tunneled dialysis catheter at this time Patient seen and care discussed with my attending physician, Dr. Teresa Landeros, PGY-2 Attending Provider Attestation/Addendum I have discussed and was present for the essential components of the history, physical examination, diagnosis, and treatment plan with the resident. I agree with the patient's care as documented by the resident and amended herein by me. Tarun Moore DO. Although this document has been carefully reviewed, there may still be some phonetic and other typographical errors. These errors are purely grammatical due to imperfections in the software program and should not be construed in any way to compromise the substance of the patient's medical care during this visit. Patient seen and evaluated this AM. Per the family's wishes, the patient will be discharged home with home hospice. I did speak with nephrology today, we will discontinue all dialysis sessions at this time. Will remove the patient's NG tube, however the patient's tunneled dialysis catheter will stay in place, would not be able to be removed until Tuesday hence we will discharge the patient with the line per nephrology recommendations. Hopefully we can get authorization for hospice today.
--- NOTE | 2024-12-01 15:49 | PC.SS ---
Addendum entered by Yuki Mccann 12/01/24 16:45: [id number] contacted Nani Betancourt from [facility] and they will accept pt back as they still have an active case with the pt. Nani reported they are able to provide hospice care and comfort care with pt. Nani stated her team is aware of his d/c today and will reach out to family for the next steps. Son Stephen, decision maker is also aware. Pt will d/c today on comfort care. ASW submitted transportation for pt via [facility] [place] to [facility] [phone] and p/u eta is : [phone]. Addendum entered by Yuki Mccann 12/01/24 16:10: [id number] met with pt and son at bedside. Per son, who is the decision maker, they decided to go with [facility] and want [facility] to do comfort care at home. ASW submitted the referral via [facility] [place] directrly to [facility]. At this time, there has been no response Original Note: 1549-Per afternoon rounding, pt will need comfort care and hospice at SNF. ASW will confirm if pt can receive comfort care and hospice at SNF placement.
--- NOTE | 2024-12-01 16:08 | PD.RESDS ---
Planned Discharge Date 12/01/24 DS: Providers Provider Date of admission: 11/30/24 15:23 Primary care physician: Neda Sparks MD Admitting Provider: Raul Moore DO Attending Provider on Admission: Raul Moore DO Consults: 11/30/24 15:34 Consult to Nephrology Stat Comment: ESRD on HD (MWF), Was unable to do Tuesday HD Consulting Provider: Neda Sparks 11/30/24 17:44 Referral Registered Dietitian Routine Comment: Referral Speech Therapy Routine Comment: 11/30/24 18:19 Referral Speech Therapy Stat Comment: 11/30/24 21:22 Referral Physical Therapy Routine Comment: Physician Instructions: 12/01/24 00:35 Referral Nutritional Services Routine Comment: Referral Wound Care Routine Comment: 12/01/24 10:43 Referral Hospice Routine Comment: Attending Provider on DC: Raul Moore DO Discharging Provider: Raul Moore DO DS: Diagnosis Problem List Completed Was Problem List Reviewed/Reconciled?: Yes Hospital Course Hospital Course Hospital course: 74 year old male with PMHx ESRD with no urine output on HD (MWF with Dr. Sparks), dementia, CVA, T2DM, HLD, HTN who was admitted on 11/30/2024 to [facility] for large right pleural effusion. He arrived to the ED with a temp of 99, saturating 91 % on RA, and with a BP of 154/70. Pt was worked up and was found to have a Hgb 9.8, Cr 3.6, PT 12.3, Albumin 3.1, pro-calcitonin 1.08, negative troponin. Pt had a Venous doppler which showed No DVT, CXR: Bilateral perihilar basilar pneumonia and Significant right pleural fluid. Ct C/A/P showed Multiple right thyroid nodules, No pulmonary artery emboli on this non-CTA study. Primary hepatocellular disease. EKG: sinus rhythm, non-specific ST and T wave abnormality, low QRS voltage in extremity leads Medicine was consulted and pt was admitted to the floors. While on the floors, patient's family, son who has medical power of environmental attorney, had agreed that they would not like any invasive procedures including thoracentesis in which we continued broad spectrum abx. In addition, pt's family decided on not pursuing Hemodialysis pt and nephrology was consulted, Dr. Sparks, who respected pt's family's wishes. Plan for patient was to be discharged to SNF on comfort care. Any further changes would be made with hospice doctor and also pt will not have tunneled dialysis catheter removed. Pt was then discharged with the following instructions. Discharge instructions Continue with hospice care Speak with your hospice care in regards to adjusting your medicines Take medicines as prescribed Return to ED if your symptoms worsen or return Problem List: #Pneumonia, bilateral, likely secondary to gram-negative versus anaerobic versus atypical organisms #Large right pleural effusion #ESRD on HD (MWF) #Fluid overload #Thyroid nodules #Cholelithiasis #Dementia #Cachexia #Hypertension #Hx CVA #Hyperlipidemia #Non-insulin dependent type 2 diabetes Discharge summary was reviewed with my attending Dr. Teresa Landeros, PGY-2 Time Spent with Patient Time attestation: Total time spent providing and/or coordinating discharge services: Time spent: Greater than 30 minutes Exam Vital Signs Temp Pulse Resp BP Pulse Ox O2 Del Method O2 Flow Rate 97.1 F 65 12 148/65 H 94 L Room Air 1 12/01/24 12:00 12/01/24 14:36 12/01/24 12:00 12/01/24 14:36 12/01/24 12:00 12/01/24 12:00 12/01/24 06:23 FiO2 0 12/01/24 07:25 Narrative Exam GENERAL: Thin and frail male. Somewhat alert, but hard to assess orientation. Patient only speaks Dada and did speak a few words to son during examination. HEENT: Normocephalic. CV: Regular rate and rhythm. S1 and S2 heard. No murmurs, however, difficult to hear. PULM: Some wheezing, but difficult to hear. On O2 2L NC. EXTREMITIES: Swelling of bilateral arms and warm to touch. 2+ pitting edema of lower extremities bilaterally up to thighs. SKIN: Warm to touch. Dry. NEURO: No facial asymmetry. Discharge Plan Plan Patient Disposition: Home w/HOSPICE Disposition Comment: with hospice Patient condition on transfer: Stable Care Plan Goals: Discharge instructions Continue with hospice care Speak with your hospice care in regards to adjusting your medicines Take medicines as prescribed Return to ED if your symptoms worsen or return Prescriptions/Referrals Prescriptions/Med Rec: New amoxicillin-pot clavulanate 875-125 mg tablet 1 tab PO BID 7 Days Qty: 14 0RF Rx Instructions: Take one tablet by mouth twice a day Continued clonidine HCl 0.1 mg tablet 0.1 mg PO BID Patient Comments: take 1 tablet by mouth four times a day Rx Instructions: systolic above 175 divalproex 250 mg tablet,delayed release (DR/EC) 250 mg PO BID Patient Comments: TAKE ONE TABLET (250MG) BY MOUTH TWICE DAILY FOR AGITATION DO NOT CHEW OR CRUSH SWALLOW WHOLE doxazosin 1 mg tablet 1 mg PO BID Patient Comments: TAKE ONE TABLET (1MG) BY MOUTH TWICE DAILY FOR HIGH BLOOD PRESSURE clonazepam 1 mg tablet 1 mg PO HS Patient Comments: TAKE ONE TABLET BY MOUTH THREE TIMES DAILY NEEDED FOR ANXIETY nifedipine 30 mg tablet extended release 60 mg PO BID Patient Comments: take 2 tablets by mouth twice a day mirtazapine 30 mg tablet 30 mg PO HS atorvastatin [Lipitor] 10 mg Tablet 10 mg PO QPM Qty: 30 0RF memantine 5 mg Tablet 5 mg PO BID quetiapine [Seroquel] 100 mg tablet 100 mg PO BID hydralazine 50 mg tablet 75 mg PO 5 TIMES DAILY Held B-complex with vitamin C Tablet 1 tab PO QDAY Hold Instructions: resume with pcp Eliquis 2.5 mg tablet 2.5 mg PO BID Qty: 30 1RF Hold Instructions: resume with PCP Referrals: Neda Sparks MD [Primary Care Provider] - Patient/Caregiver Discharge Instructions Discharge Activity: activity as tolerated Education Materials: Hospice: As Nears, ED Pleural Effusion Print Language: Dustin Stand Alone Forms: Layne Award Info., Patient Portal Info Letter Discharge Order Discharge Orders: Discharge (Routine); Ordered 12/01/24 Ordered By: Anthony Landeros Quality Discharge Quality Measures VTE prophylaxis Attestestation Attestation I have discussed and was present for the essential components of the discharge history, physical examination, diagnosis, and discharge treatment plan with the resident. I agree with the patient's discharge care as documented by the resident and amended herein by me. Tarun Moore DO. Patient discharged home with home hospice per family's wishes. NG tube removed, we did leave the dialysis catheter in place as it was unable to be removed at time of discharge which we cleared with nephrology. All questions were answered satisfactorily, patient okay to discharge home on hospice. Although this document has been carefully reviewed, there may still be some phonetic and other typographical errors. These errors are purely grammatical due to imperfections in the software program and should not be construed in any way to compromise the substance of the patient's medical care during this visit.
--- NOTE | 2024-12-01 19:23 | PC.NURSE ---
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 Patinet showed no sign of being in distress.
[2024-12-03 07:44] LABS: Misc Send Out* See Sep Rpt
== END 2024-12-01 19:21 | disposition hospice, home (50) | DRG 193 ==
LOC: SERX 14:23 → SERHOLD 16:09 → S3SX 20:58
PROVIDERS: Admitting Provider Student in an Organized Health Care Education/Training Program; Emergency Provider Emergency Medicine; PCP Internal Medicine; Visit Provider Student in an Organized Health Care Education/Training Program
DX: J18.9 Pneumonia, unspecified organism (principal); N18.6 End stage renal disease; G93.40 Encephalopathy, unspecified; J90 Pleural effusion, not elsewhere classified; R64 Cachexia; I13.2 Hypertensive heart and chronic kidney disease with heart failure and with stage 5 chronic kidney disease, or end stage renal disease; I50.9 Heart failure, unspecified; F03.C0 Unspecified dementia, severe, without behavioral disturbance, psychotic disturbance, mood disturbance, and anxiety; E11.22 Type 2 diabetes mellitus with diabetic chronic kidney disease; E04.2 Nontoxic multinodular goiter; K80.20 Calculus of gallbladder without cholecystitis without obstruction; E78.5 Hyperlipidemia, unspecified; Z86.73 Personal history of transient ischemic attack (TIA), and cerebral infarction without residual deficits; Z99.2 Dependence on renal dialysis; Z66 Do not resuscitate; Z51.5 Encounter for palliative care; Z79.84 Long term (current) use of oral hypoglycemic drugs; Z99.3 Dependence on wheelchair
CPT/HCPCS: 36415; 71045; 71260; 74177; 76700; 80053; 81001; 83036; 83605; 83735; 84100; 84145; 84439; 84443; 84484; 85025; 85610; 85730; 87040; 87077; 87086; 87186; 87205; 87400; 87811; 92610; 93005; 93225; 93970; 94664; 96361; 96365; 96366; 96375; 97161; 99284; A4649; J0131; J0360; J0456; J0696; J1644; J2470; J3490; J7030; J7050; Q9967; A9270; J1920